=== PATIENT | female | born 1955 | race Caucasian/White ===

== ENCOUNTER 2018-06-20 14:15 | Emergency (ER) | payer OTHER ==
[~2018-06-20] VITALS: Ht 157.5 cm; Wt 52.2 kg
[2018-06-20] MEDS ORDERED: HYDROcodone/APAP 5 MG/325 MG (LORTAB) TAB PO ONE (14:45)
--- NOTE | 2018-06-20 14:47 | ED Upper Extremity ---
General Chief Complaint: Upper Extremity Stated Complaint: HAND INJ;SWELLING/BRUISING Nursing Triage Note: PT PRESENTS TO ER WITH COMPLAINT OF RIGHT HAND PAIN AND SWELLING. PT STATES SHE FELL WEDNESDAY AND LANDED ON HER RIGHT HAND. STATES THE SWELLING AND BRUISING HAS WORSENED. Nursing Sepsis Screen: No Definite Risk Source: patient Exam Limitations: no limitations History of Present Illness Date Seen by Provider: Jun 20, 2018 Time Seen by Provider: 14:45 Initial Comments To ER per EMS with reports of right hand pain. She also has some significant swelling to the dorsum of the hand. She fell while getting out of the couch about 2 days ago. She's had significant swelling as well. Onset: just prior to arrival Severity: moderate Pain/Injury Location: right hand Method of Injury: fell Modifying Factors: Worse With Movement Allergies and Home Medications Allergies Coded Allergies: Sulfa (Sulfonamide Antibiotics) (Verified Allergy, Unknown, 06/20/18) Home Medications Hydrocodone/Acetaminophen 1 Each Tablet, 1 EACH PO Q4H PRN for PAIN-MODERATE Prescribed by: GONSALO RODRIGUEZ on 06/20/18 1511 Patient Home Medication List Home Medication List Reviewed: Yes Review of Systems Constitutional: see HPI EENTM: see HPI Respiratory: no symptoms reported Cardiovascular: no symptoms reported Genitourinary: no symptoms reported Musculoskeletal: see HPI Skin: no symptoms reported Psychiatric/Neurological: No Symptoms Reported Past Qxqlnws-Lhwtvc-Kkbxcv Hx Patient Social History Alcohol Use: Occasionally Uses Alcohol Beverage of Choice: Wine Recreational Drug Use: No Smoking Status: Current Everyday Smoker Type Used: Cigarettes Recent Foreign Travel: No Contact w/Someone Who Travel: No Recent Infectious Disease Expo: No Recent Hopitalizations: No Immunizations Up To Date PED Vaccines UTD: Yes Seasonal Allergies Seasonal Allergies: No Past Medical History Surgeries: Yes Orthopedic Respiratory: No Cardiac: Yes High Cholesterol, Hypertension Neurological: No Genitourinary: No Gastrointestinal: No Musculoskeletal: No Endocrine: No HEENT: No Cancer: No Psychosocial: No Integumentary: No Blood Disorders: No Physical Exam Vital Signs Vital Signs - First Documented 06/20/18 14:29 Pulse 92 Resp 20 B/P (MAP) 119/79 (92) Pulse Ox 97 O2 Delivery Room Air Capillary Refill : Less Than 3 Seconds Height, Weight, BMI Height: 5'2.00" Weight: 115lbs. oz. 52.065347ey; BMI Method:Stated General Appearance: WD/WN, no apparent distress HEENT: PERRL/EOMI, normal ENT inspection Respiratory: no respiratory distress, no accessory muscle use Shoulder: normal inspection, non-tender Elbow/Forearm: normal inspection, non-tender Wrist: Yes normal inspection, Yes non-tender Hand: Right, ecchymosis, soft tissue tenderness (I am able to passively flex and extend each of the fingers without increased pain in the hand so I'm not concerned of compartment syndrome at this time. Fingertips retain brisk capillary refill and sensation.), swelling Neurologic/Psychiatric: alert, normal mood/affect, oriented x 3 Skin: normal color, warm/dry Progress/Results/Core Measures Results/Orders My Orders Orders - GONSALO RODRIGUEZ APRN Hand, Right, 3 Views (06/20/18 14:34) Hydrocodone/Apap 5/325 Tablet (Lortab 5 (06/20/18 14:45) Medications Given in ED Current Medications Medications Dose Ordered Sig/Barbara Route Start Time Stop Time Status Last Admin Dose Admin Acetaminophen/ Hydrocodone Bitart 1 tab ONCE ONCE PO 06/20/18 14:45 06/20/18 14:46 DC 06/20/18 14:47 1 TAB Vital Signs/I&O 06/20/18 14:29 Pulse 92 Resp 20 B/P (MAP) 119/79 (92) Pulse Ox 97 O2 Delivery Room Air Blood Pressure Mean: 92 Departure Communication (Admissions) Placed her in a thumb spica splint using 5 inch Ortho-Glass that I was able to wrap around her hand ulnarly to the third metacarpal. Due to the large size of this 5 inch Ortho-Glass I was able to mobilize the first second and third metacarpals. Impression Primary Impression: Thumb fracture Qualified Codes: S62.511A - Displaced fracture of proximal phalanx of right thumb, initial encounter for closed fracture Disposition: 01 HOME, SELF-CARE Condition: Stable Departure-Patient Inst. Decision time for Depature: 15:10 Patient Instructions: Hand Fracture (DC) Add. Discharge Instructions: 1. Wear the splint at all times until you follow up with orthopedics. Pain medication as directed. Return to ER for concerns. Elevate the hand as much as possible to help reduce the swelling. All discharge instructions reviewed with patient and/or family. Voiced understanding. Scripts Hydrocodone/Acetaminophen (Rock 5-325 Tablet) 1 Each Tablet 1 EACH PO Q4H PRN for PAIN-MODERATE MDD 10, #30 TAB Prov: GONSALO RODRIGUEZ APRN 06/20/18 GONSALO RODRIGUEZ APRN Jun 20, 2018 14:47
[2018-06-20] MEDS ORDERED: HYDR-4226 PO (15:11)
--- NOTE | 2018-06-20 15:32 | Diagnostic Imaging Report ---
INDICATION: Right hand pain and swelling. FINDINGS: Three views of the right hand show a comminuted fracture of the base of the first metacarpal. This is nondisplaced. There is a nondisplaced fracture of the head of the second metacarpal with slight impaction. There are postop changes from prior repair with internal fixation of a distal radius fracture. IMPRESSION: Comminuted fracture of the base of the first metacarpal that extends to the articular surface. There is an impacted fracture of the head of the second metacarpal. Dictated by: Dictated on workstation # [id number]
[2018-06-20 15:46] VITALS: BP 118/79
== END 2018-06-20 15:46 | disposition home or self-care (01) ==
LOC: ER 14:17
DX: S62.231A Other displaced fracture of base of first metacarpal bone, right hand, initial encounter for closed fracture (principal); E78.00 Pure hypercholesterolemia, unspecified; I10 Essential (primary) hypertension; F17.210 Nicotine dependence, cigarettes, uncomplicated; Z88.2 Allergy status to sulfonamides; W08.XXXA Fall from other furniture, initial encounter
CPT/HCPCS: 73130

== ENCOUNTER 2018-11-26 21:37 | Emergency (ER) | payer OTHER ==
[~2018-11-26] VITALS: Ht 157.5 cm; Wt 47.6 kg
[~2018-11-26 21:37] MED LIST: HYDR-4226 PO
[2018-11-26] MEDS ORDERED: AMLO5TAB9 (22:11)
[2018-11-26] MEDS ORDERED: LISI-552 (22:11)
[2018-11-26] MEDS ORDERED: PRAV20TA3 (22:11)
--- NOTE | 2018-11-26 22:11 | ED Lower Extremity ---
General Stated Complaint: RT HIP PAIN Source: patient Exam Limitations: no limitations History of Present Illness Date Seen by Provider: November 26, 2018 Time Seen by Provider: 22:09 Initial Comments To ER by private vehicle accompanied by mother with reports of right hip pain. Was trying to help move a mattress when she fell landing on her buttock, had immediate pain in the posterior right hip, now has pain in the anterior right hip as well. Unable to bear weight. Onset: just prior to arrival Severity: moderate Pain/Injury Location: right hip Method of Injury: fell Modifying Factors: Worse With Movement Allergies and Home Medications Allergies Coded Allergies: Sulfa (Sulfonamide Antibiotics) (Verified Allergy, Unknown, 06/20/18) Home Medications Hydrocodone/Acetaminophen 1 Each Tablet, 1 EACH PO Q4H PRN for PAIN-MODERATE Prescribed by: GONSALO RODRIGUEZ on 06/20/18 1511 Patient Home Medication List Home Medication List Reviewed: Yes Review of Systems Constitutional: see HPI EENTM: see HPI Respiratory: no symptoms reported Musculoskeletal: see HPI Skin: no symptoms reported Psychiatric/Neurological: No Symptoms Reported Past Fqpbfwh-Muyzdw-Bexmye Hx Patient Social History Alcohol Beverage of Choice: Wine Type Used: Cigarettes Recent Foreign Travel: No Contact w/Someone Who Travel: No Recent Hopitalizations: No Immunizations Up To Date PED Vaccines UTD: Yes Seasonal Allergies Seasonal Allergies: No Past Medical History Surgeries: Yes Orthopedic Respiratory: No Cardiac: Yes High Cholesterol, Hypertension Neurological: No Genitourinary: No Gastrointestinal: No Musculoskeletal: No Endocrine: No HEENT: No Cancer: No Psychosocial: No Integumentary: No Blood Disorders: No Physical Exam Vital Signs Vital Signs - First Documented 11/26/18 21:59 Temp 97.8 Pulse 72 Resp 18 B/P (MAP) 141/74 (96) Pulse Ox 100 O2 Delivery Room Air Capillary Refill : Height, Weight, BMI Height: 5'2.00" Weight: 115lbs. oz. 52.196732na; BMI Method:Stated General Appearance: WD/WN, no apparent distress HEENT: PERRL/EOMI Respiratory: no respiratory distress, no accessory muscle use Hips: bilateral hip normal inspection, bilateral hip normal range of motion; right hip pain, right hip other (she does have pain to the right hip. However when I lay her supine in bed and pick her leg up and abduct the leg at the hip, adduct, flex at the hip this does not increase her pain and she states in fact that it makes the hip feel better. However when she actively tries to perform range of motion exercises she has a increase in pain. I suspect a muscular injury but we will obtain plain films.) Legs: bilateral leg non-tender, bilateral leg normal inspection, bilateral leg normal range of motion Knees: bilateral knee non-tender, bilateral knee normal inspection, bilateral knee normal range of motion Ankles: bilateral ankle non-tender, bilateral ankle normal inspection, bilateral ankle normal range of motion Feet: bilateral foot non-tender, bilateral foot normal inspection, bilateral foot normal range of motion Neurologic/Psychiatric: alert, normal mood/affect, oriented x 3 Skin: normal color, warm/dry Progress/Results/Core Measures Results/Orders My Orders Orders - GONSALO RODRIGUEZ APRN Hydrocodone/Apap 5/325 Tablet (Lortab 5 (11/26/18 22:15) Pelvis (11/26/18 22:08) Hip, Right, 2 Views (11/26/18 22:08) Chest 1 View, Ap/Pa Only (11/26/18 22:56) Rx-Hydrocodone/Apap 5-325 Mg (Rx-Vicodin (11/26/18 23:00) Medications Given in ED Current Medications Medications Dose Ordered Sig/Barbara Route Start Time Stop Time Status Last Admin Dose Admin Acetaminophen/ Hydrocodone Bitart 1 tab ONCE ONCE PO 11/26/18 22:15 11/26/18 22:16 DC 11/26/18 22:18 1 TAB Vital Signs/I&O 11/26/18 11/26/18 21:59 22:18 Temp 97.8 97.8 Pulse 72 Resp 18 B/P (MAP) 141/74 (96) Pulse Ox 100 O2 Delivery Room Air Departure Impression Primary Impression: Fracture of pubic ramus Qualified Codes: S32.591A - Other specified fracture of right pubis, initial encounter for closed fracture Disposition: 01 HOME, SELF-CARE Condition: Stable Departure-Patient Inst. Decision time for Depature: 22:58 Referrals: HERRERA TREJO BRIAN J MD NO,LOCAL PHYSICIAN (PCP) Primary Care Physician JUANITA MIJARES MD, ROBERT F DO ZAFUTA, MICHAEL P MD Patient Instructions: Pelvic Fracture (DC) Add. Discharge Instructions: 1. Weightbearing as tolerated. Use the walker when walking. Pain medication as directed. Return to ER for any concerns. Follow-up with orthopedic surgeon of your choosing within 1 week. Call on Wednesday to make an appointment. Scripts Hydrocodone Bit/Acetaminophen (Hydrocodone/Acetaminophen 5/325mg Tablet) 1 Tab Tab 1 EACH PO Q4-6HR PRN for PAIN-MODERATE MDD 10 for 3 Days, #30 TAB Prov: GONSALO RODRIGUEZ APRN 11/26/18 GONSALO RODRIGUEZ APRN November 26, 2018 22:11
[2018-11-26] MEDS ORDERED: HYDROcodone/APAP 5 MG/325 MG (LORTAB) TAB PO ONE (22:15)
--- NOTE | 2018-11-26 22:18 | NUR ---
pt assissted out of pants, warm blanket provided. pt informed other patient in radiology at this time. no other needs at this time.
[2018-11-26] MEDS ORDERED: ACHD5005 PO (23:00)
[2018-11-26] MEDS ORDERED: RX-HYDROCODONE/APAP 5/325 MG #4 TAB PK PO PRN (23:00)
[2018-11-26 23:08] VITALS: BP 137/76
--- NOTE | 2018-11-27 07:37 | Diagnostic Imaging Report ---
PATIENT HISTORY: Right pelvic pain from fall. TECHNIQUE: Single frontal view of the pelvis COMPARISON: None FINDINGS: The pelvis is partially obscured by overlying bowel gas. There is osteopenia. There are mild degenerative changes in the bilateral hip joints. There is calcific atherosclerosis. There is a mildly displaced fracture through the right superior and inferior pubic rami. The right sacrum is suboptimally evaluated due to bowel gas and osteopenia. There are iliac stents bilaterally. IMPRESSION: 1. Mildly displaced fractures of the right superior and inferior pubic rami. The right sacrum is suboptimally evaluated. Dictated by: Dictated on workstation # [id number]
--- NOTE | 2018-11-27 07:39 | Diagnostic Imaging Report ---
PATIENT HISTORY: Fall. TECHNIQUE: Frontal view of the chest COMPARISON: None FINDINGS: Lung volumes are normal. No focal consolidation is seen. There is no pleural effusion or pneumothorax. The cardiomediastinal silhouette is normal in size and contour. There is diffuse osteopenia. There is internal fixation of the proximal left humerus. IMPRESSION: No acute pulmonary abnormality seen. Dictated by: Dictated on workstation # [id number]
--- NOTE | 2018-11-27 07:44 | Diagnostic Imaging Report ---
INDICATION: Right pelvic pain after fall. TECHNIQUE: 2 views of the right hip. COMPARISON: None. FINDINGS: There is a mildly displaced fracture of the right superior and inferior pubic rami. No definite fracture is seen in the right sacrum, although partially obscured by bowel gas and osteopenia. There are mild degenerative changes in the right hip joint. There is calcific atherosclerosis. No acute fracture of the proximal right femur is seen. IMPRESSION: 1. Mildly displaced fractures of the right superior and inferior pubic rami. The right sacrum is not well evaluated. 2. Mild degenerative changes in the right hip joint. Called to ER at 7:41 a.m. by cvb. Dictated by: Dictated on workstation # [id number]
== END 2018-11-26 23:08 | disposition home or self-care (01) ==
LOC: EDUNIT# 21:37 → ER 21:38
DX: S32.591A Other specified fracture of right pubis, initial encounter for closed fracture (principal); E78.00 Pure hypercholesterolemia, unspecified; I10 Essential (primary) hypertension; Z88.2 Allergy status to sulfonamides; W18.30XA Fall on same level, unspecified, initial encounter
CPT/HCPCS: 71045; 72170; 73502

== ENCOUNTER 2021-01-17 21:26 | Emergency (ER) | payer MEDICARE, OTHER ==
[~2021-01-17] VITALS: Ht 157.5 cm; Wt 45.3 kg
[~2021-01-17 21:26] MED LIST changes: +ACHD5005 PO; +AMLO-250; +LISI20TA26; +PRAV20TA3
--- NOTE | 2021-01-17 21:42 | ED Fall/Injury ---
General Stated Complaint: FALL Source: patient, EMS Exam Limitations: no limitations History of Present Illness Date Seen by Provider: Jan 17, 2021 Time Seen by Provider: 21:29 Initial Comments Patient to the ER by EMS from home with chief complaint that she was in her home had just gone to the bathroom and was walking through her house and tripped over a box. She immediately had pain in her right hip and was unable to stand. She tried herself over to her coffee table where her phone was called her mother and EMS. She did not strike her head nor did she lose consciousness. She says she had 2 glasses of wine tonight. She typically drinks 4 glasses of wine a day. She smokes about a pack a day but only takes medications for high blood pressure. She is known to Karlo Segura at [facility]. She recently moved here from [place] and has been unpacking. She is not on blood thinners. She rates her pain as an 8 out of 10. She has not received anything for pain yet. A liter of IV fluids was initiated on route because her blood pressure was in the 90s. Allergies and Home Medications Allergies Coded Allergies: Sulfa (Sulfonamide Antibiotics) (Verified Allergy, Unknown, 06/20/18) Home Medications Hydrocodone Bit/Acetaminophen 1 Tab Tab, 1 EACH PO Q4-6HR PRN for PAIN-MODERATE Prescribed by: GONSALO RODRIGUEZ on 11/26/18 2300 Hydrocodone/Acetaminophen 1 Each Tablet, 1 EACH PO Q4H PRN for PAIN-MODERATE Prescribed by: GONSALO RODRIGUEZ on 06/20/18 1511 Patient Home Medication List Home Medication List Reviewed: Yes Review of Systems Review of Systems Constitutional: No chills, No diaphoresis, No dizziness, No fever, No malaise, No weakness Eyes: Denies Blindness, Denies Blurred Vision Ears, Nose, Mouth, Throat: denies ear pain, denies ear discharge Respiratory: No cough, No dyspnea on exertion Cardiovascular: No chest pain, No edema, No Hx of Intervention Gastrointestinal: No abdominal pain, No nausea, No vomiting Genitourinary: No discharge, No dysuria Musculoskeletal: see HPI; No back pain; joint pain All Other Systems Reviewed Negative Unless Noted: Yes Past Gwzdqvj-Vfjisu-Upiexe Hx Patient Social History Alcohol Use: Regular Use Number of Drinks Today: 2 Alcohol Beverage of Choice: Wine Drug of Choice: Denies Smoking Status: Current Everyday Smoker Type Used: Cigarettes (Pack per day) Recent Hopitalizations: No Immunizations Up To Date Tetanus Booster (TDap): Unknown PED Vaccines UTD: Yes Seasonal Allergies Seasonal Allergies: No Past Medical History Surgeries: Yes Orthopedic Respiratory: No Cardiac: Yes High Cholesterol, Hypertension 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 oz. 47.403152lm; BMI Method:Stated General Appearance: WD/WN, mild distress HEENT: PERRL/EOMI (3 mm reactive), normal ENT inspection (Negative for raccoon eyes), TMs normal (Negative for d[place] sign or hemotympanum), pharynx normal Neck: non-tender, full range of motion, normal inspection Cardiovascular: normal peripheral pulses, regular rate, rhythm Respiratory: lungs clear, normal breath sounds, no respiratory distress, no accessory muscle use Peripheral Pulses: 1+ Dorsalis Pedis (R), 1+ Left Dors-Pedis (L) Gastrointestinal: normal bowel sounds, non tender, soft Extremities: normal capillary refill, other (Tenderness over the greater trochanter of the right femur) Neurologic/Psychiatric: no motor/sensory deficits, alert, normal mood/affect, oriented x 3 Skin: normal color, warm/dry Bro Coma Score Best Eye Response: (4) Open Spontaneously Best Verbal Response: (5) Oriented Best Motor Response: (6) Obeys Commands [place] Total: 15 Progress/Results/Core Measures Results/Orders Lab Results Laboratory Tests Test 01/17/21 21:35 01/18/21 00:05 Range/Units White Blood Count 5.3 4.3-11.0 10^3/uL Red Blood Count 3.06 L 3.80-5.11 10^6/uL Hemoglobin 10.3 L 11.5-16.0 g/dL Hematocrit 31 L 35-52 % Mean Corpuscular Volume 101 H 80-99 fL Mean Corpuscular Hemoglobin 34 25-34 pg Mean Corpuscular Hemoglobin Concent 33 32-36 g/dL Red Cell Distribution Width 13.2 10.0-14.5 % Platelet Count 339 130-400 10^3/uL Mean Platelet Volume 9.4 9.0-12.2 fL Immature Granulocyte % (Auto) 1 % Neutrophils (%) (Auto) 55 42-75 % Lymphocytes (%) (Auto) 31 12-44 % Monocytes (%) (Auto) 11 0-12 % Eosinophils (%) (Auto) 1 0-10 % Basophils (%) (Auto) 1 0-10 % Neutrophils # (Auto) 2.9 1.8-7.8 10^3/uL Lymphocytes # (Auto) 1.7 1.0-4.0 10^3/uL Monocytes # (Auto) 0.6 0.0-1.0 10^3/uL Eosinophils # (Auto) 0.1 0.0-0.3 10^3/uL Basophils # (Auto) 0.1 0.0-0.1 10^3/uL Immature Granulocyte # (Auto) 0.0 0.0-0.1 10^3/uL Sodium Level 133 L 135-145 MMOL/L Potassium Level 3.5 L 3.6-5.0 MMOL/L Chloride Level 100 98-107 MMOL/L Carbon Dioxide Level 17 L 21-32 MMOL/L Anion Gap 16 H 5-14 MMOL/L Blood Urea Nitrogen 5 L 7-18 MG/DL Creatinine 0.62 0.60-1.30 MG/DL Estimat Glomerular Filtration Rate > 60 BUN/Creatinine Ratio 8 Glucose Level 51 *L 70-105 MG/DL Calcium Level 8.3 L 8.5-10.1 MG/DL Corrected Calcium 8.9 8.5-10.1 MG/DL Total Bilirubin 0.3 0.1-1.0 MG/DL Aspartate Amino Transf (AST/SGOT) 43 H 5-34 U/L Alanine Aminotransferase (ALT/SGPT) 21 0-55 U/L Alkaline Phosphatase 76 40-136 U/L Total Protein 6.7 6.4-8.2 GM/DL Albumin 3.3 3.2-4.5 GM/DL Serum Alcohol 170 H <10 MG/DL My Orders Orders - AINSLEY MORRIS Chest 1 View, Ap/Pa Only (01/17/21 21:36) Hip, Right, 2 Views (01/17/21 21:36) Ed Iv/Invasive Line Start (01/17/21 21:36) Fentanyl Inj (Sublimaze Injection) (01/17/21 21:45) Cbc With Automated Diff (01/17/21 21:36) Comprehensive Metabolic Panel (01/17/21 21:36) Alcohol (01/17/21 21:36) Ekg Tracing (01/17/21 21:36) D5 Ns 1000 Ml Iv Solution (Dextrose 5%/0 (01/17/21 22:15) Fentanyl Inj (Sublimaze Injection) (01/17/21 23:30) Medications Given in ED Current Medications Medications Dose Ordered Sig/Barbara Route Start Time Stop Time Status Last Admin Dose Admin Fentanyl Citrate 50 mcg ONCE ONCE IVP 01/17/21 21:45 01/17/21 21:46 DC 01/17/21 21:46 50 MCG Fentanyl Citrate 100 mcg ONCE ONCE IVP 01/17/21 23:30 01/17/21 23:31 DC 01/17/21 23:48 100 MCG Vital Signs/I&O 01/17/21 21:26 Temp 36.6 Pulse 84 Resp 17 B/P (MAP) 102/71 (81) Pulse Ox 100 O2 Delivery Room Air 01/18/21 00:00 Intake Total 300 ml Balance 300 ml Progress Progress Note #1: Time: 21:41 Progress Note Plain films of the hip. Suspect it is fractured she will get a plain film of the chest as well as EKG and some labs to establish background prior to surgery. 50 mcg of fentanyl. Will allow her to continue to infuse the IV fluids. Progress Note #2: Time: 00:47 Progress Note Patient presented with an Accu-Chek of 58 per EMS and 51 in the ER so we started her on D5 normal saline at 100 mL an hour. Her repeat blood sugar was 70. We will just keep that going until she reaches her destination at [place]. Initial ECG Impression Date: Jan 17, 2021 Initial ECG Impression Time: 21:48 Initial ECG Rate: 86 Initial ECG Rhythm: Normal Sinus Initial ECG Intervals: QT (587) Initial ECG Impression: Normal, Nonspecific Changes Comment Prolonged QT interval. Normal sinus rhythm without clinically relevant ST changes. Diagnostic Imaging Diagonstic Imaging: Xray Plain Films/CT/US/NM/MRI: chest Reviewed: Reviewed by Me Diagonstic Imaging: Xray Plain Films/CT/US/NM/MRI: hip (Right) Reviewed: Reviewed by Me Departure Impression Primary Impression: Fall Qualified Codes: W19.XXXA - Unspecified fall, initial encounter Additional Impressions: Closed right hip fracture Qualified Codes: S72.001A - Fracture of unspecified part of neck of right femur, initial encounter for closed fracture Hypoglycemia Disposition: XFER SHT-TRM HOSP Condition: Stable Transfer Transfer Reason: Exceeds level of care (No orthopedic surgery coverage.) Time Spoke to Accepting Phy: 23:45 Transfer Progress Notes [place] ED: Dr Alfonso Accepting Transfer Time: 01:00 Transfer Facility: [facility] Method of Transfer: EMS ([facility]) Departure-Patient Inst. Referrals: NO,LOCAL PHYSICIAN (PCP/Family) Primary Care Physician AINSLEY MORRIS Jan 17, 2021 21:42
[2021-01-17] MEDS ORDERED: fentaNYL INJ 100 MCG/2 ML AMP IVP ONE ×2 (21:45→23:30)
[2021-01-17 21:49] LABS: BASOPHILS # (AUTO) 0.1 10^3/uL (0.0-0.1); BASOPHILS % (AUTO) 1 % (0-10); EOSINOPHILS # (AUTO) 0.1 10^3/uL (0.0-0.3); EOSINOPHILS % (AUTO) 1 % (0-10); HEMATOCRIT 31 % (35-52); HEMOGLOBIN 10.3 g/dL (11.5-16.0); LYMPHOCYTES # (AUTO) 1.7 10^3/uL (1.0-4.0); LYMPHOCYTES % (AUTO) 31 % (12-44); MEAN CORPUSCULAR HEMOGLOBIN 34 pg (25-34); MEAN CORPUSCULAR HGB CONC 33 g/dL (32-36); MEAN CORPUSCULAR VOLUME 101 fL (80-99); MEAN PLATELET VOLUME 9.4 fL (9.0-12.2); MONOCYTES # (AUTO) 0.6 10^3/uL (0.0-1.0); MONOCYTES % (AUTO) 11 % (0-12); NEUTROPHILS # (AUTO) 2.9 10^3/uL (1.8-7.8); NEUTROPHILS % (AUTO) 55 % (42-75); PLATELET COUNT 339 10^3/uL (130-400); WHITE BLOOD COUNT 5.3 10^3/uL (4.3-11.0)
[2021-01-17 21:53] LABS: ALBUMIN 3.3 GM/DL (3.2-4.5)
[2021-01-17 21:54] LABS: CHLORIDE 100 MMOL/L (98-107); POTASSIUM 3.5 MMOL/L (3.6-5.0); SODIUM 133 MMOL/L (135-145)
[2021-01-17 21:55] LABS: CALCIUM 8.3 MG/DL (8.5-10.1)
[2021-01-17 21:56] LABS: TOTAL PROTEIN 6.7 GM/DL (6.4-8.2)
[2021-01-17 21:57] LABS: CARBON DIOXIDE 17 MMOL/L (21-32)
[2021-01-17 21:58] LABS: BILIRUBIN,TOTAL 0.3 MG/DL (0.1-1.0)
[2021-01-17 21:59] LABS: ALKALINE PHOSPHATASE 76 U/L (40-136)
[2021-01-17 22:00] LABS: CREATININE SERUM 0.62 MG/DL (0.60-1.30); GFR ESTIMATED > 60
[2021-01-17 22:01] LABS: BUN/CREATININE RATIO 8
[2021-01-17 22:03] LABS: ALANINE AMINOTRANSFERASE 21 U/L (0-55)
[2021-01-17 22:08] LABS: GLUCOSE 51 MG/DL (70-105)
[2021-01-17] MEDS ORDERED: D5 NS 1000 ML IV SOLUTION 1,000 ML IV SCH (22:15)
[2021-01-18 00:50] VITALS: BP 118/68
--- NOTE | 2021-01-18 07:24 | Diagnostic Imaging Report ---
INDICATION: Fall, pain FINDINGS: There is mild varus angulation associated with an intertrochanteric right hip fracture. Femoral head is intact. The acetabulum nonacute. There is bilateral hip osteoarthritis. There appears to be bony demineralization and atherosclerotic vascular calcifications. IMPRESSION: Mild varus angulation associated with intertrochanteric right hip fracture with underlying bony demineralization Dictated by: Dictated on workstation # [id number]
== END 2021-01-18 00:50 | disposition short-term general hospital (02) ==
LOC: EDUNIT# 21:26 → ER 21:27
DX: S72.141A Displaced intertrochanteric fracture of right femur, initial encounter for closed fracture (principal); E16.2 Hypoglycemia, unspecified; I10 Essential (primary) hypertension; F17.210 Nicotine dependence, cigarettes, uncomplicated; W01.0XXA Fall on same level from slipping, tripping and stumbling without subsequent striking against object, initial encounter; Y92.009 Unspecified place in unspecified non-institutional (private) residence as the place of occurrence of the external cause
CPT/HCPCS: 71045; 73502; 80053; 85025; 93005; 99285; G0480; 36415; 80320; 82947

== ENCOUNTER → 2021-03-14 | Outpatient (CLI) | payer MEDICARE | LOC: LAB 13:38 | PROVIDERS: ATTEND Surgery | DX: E43 Unspecified severe protein-calorie malnutrition (principal) | CPT/HCPCS: 36415; 84134 ==

== ENCOUNTER → 2021-03-14 | Outpatient (CLI) | payer MEDICARE | LOC: WOUNDCARE 12:10 | PROVIDERS: ATTEND Surgery | DX: L89.610 Pressure ulcer of right heel, unstageable (principal); L89.620 Pressure ulcer of left heel, unstageable; L89.890 Pressure ulcer of other site, unstageable; I70.234 Atherosclerosis of native arteries of right leg with ulceration of heel and midfoot; E43 Unspecified severe protein-calorie malnutrition; T65.222A Toxic effect of tobacco cigarettes, intentional self-harm, initial encounter; F17.218 Nicotine dependence, cigarettes, with other nicotine-induced disorders | CPT/HCPCS: A6260; G0463; 99214 ==

== ENCOUNTER → 2021-03-20 | Outpatient (CLI) | payer MEDICARE | LOC: WOUNDCARE 15:00 | PROVIDERS: ATTEND Surgery | DX: L89.610 Pressure ulcer of right heel, unstageable (principal); L89.620 Pressure ulcer of left heel, unstageable; L89.890 Pressure ulcer of other site, unstageable; I70.234 Atherosclerosis of native arteries of right leg with ulceration of heel and midfoot; E43 Unspecified severe protein-calorie malnutrition; T65.222A Toxic effect of tobacco cigarettes, intentional self-harm, initial encounter; I96 Gangrene, not elsewhere classified; F17.218 Nicotine dependence, cigarettes, with other nicotine-induced disorders | CPT/HCPCS: 99214 ==

== ENCOUNTER → 2021-03-26 | Outpatient (CLI) | payer MEDICARE | LOC: CARD 13:39 | PROVIDERS: ATTEND Internal Medicine Cardiovascular Disease | DX: I08.1 Rheumatic disorders of both mitral and tricuspid valves (principal); I73.9 Peripheral vascular disease, unspecified | CPT/HCPCS: 93306 ==

== ENCOUNTER 2021-04-02 09:00 | Day surgery (SDC) | payer MEDICARE ==
[~2021-04-02] VITALS: Ht 157.5 cm; Wt 36.7 kg
[2021-04-02] VITALS (10 sets, daily range): BP systolic 80–120; BP diastolic 50–74
[2021-04-02 07:33] LABS: HEMATOCRIT 30 % (35-52); HEMOGLOBIN 9.6 g/dL (11.5-16.0); MEAN CORPUSCULAR HEMOGLOBIN 32 pg (25-34); MEAN CORPUSCULAR HGB CONC 33 g/dL (32-36); MEAN CORPUSCULAR VOLUME 97 fL (80-99); MEAN PLATELET VOLUME 9.6 fL (9.0-12.2); PLATELET COUNT 467 10^3/uL (130-400); WHITE BLOOD COUNT 7.3 10^3/uL (4.3-11.0)
[2021-04-02 07:40] LABS: POTASSIUM 3.9 MMOL/L (3.6-5.0)
[2021-04-02 07:41] LABS: ALBUMIN 3.7 GM/DL (3.2-4.5)
[2021-04-02 07:42] LABS: CALCIUM 9.6 MG/DL (8.5-10.1)
[2021-04-02 07:43] LABS: TOTAL PROTEIN 7.6 GM/DL (6.4-8.2)
[2021-04-02 07:45] LABS: BILIRUBIN,TOTAL 0.3 MG/DL (0.1-1.0)
[2021-04-02 07:47] LABS: CREATININE SERUM 0.62 MG/DL (0.60-1.30)
[2021-04-02 07:50] LABS: INR 0.9 (0.8-1.4); PROTHROMBIN TIME PATIENT 12.2 SEC (12.2-14.7)
[~2021-04-02 09:00] MED LIST changes: -AMLO-250; +AMLO-250 PO; +ASPI-808 PO; +HEParin (CATH LAB) 2,000 ML IV ONE; +LIDOCAINE 1% INJ 20 ML 20 ML VIAL ONE; -LISI20TA26; +LISI20TA26 PO; +NS IV 1000 ML 1,000 ML IV SCH; +NS IV 1000 ML 1,000 ML ONE; +PEG15DRO9 OU
--- NOTE | 2021-04-02 09:00 | Conscious Sedation/ASA ---
Conscious Sedation Pre-Proced Time 08:59 ASA Score 3 For ASA 3 and 4: Consider anesthesia and medical clearance. Also, for patients with a history of failed moderate sedation consider anesthesia. Airway Lungs Heart ASA score ASA 1: a normal healthy patient ASA 2: a patient with a mild systemic disease (mid diabetes, controlled hypertension, obesity x ASA 3: a patient with a severe systemic disease that limits activity (angina, COPD, prior Myocardial infarction) ASA 4: a patient with an incapacitating disease that is a constant threat to life (CHF, renal failure) ASA 5: a moribund patient not expected to survive 24 hrs. (ruptured aneurysm) ASA 6: a declared brain- patient whose organs are being harvested. For emergent operations, add the letter E after the classification Mallampati Classification Grade 3 Sedation Plan Analgesia, Amnesia, Plan communicated to team members, Discussed options with patient/fam, Discussed risks with patient/fam The patient is an appropriate candidate to undergo the planned procedure, sedation, and anesthesia. The patient immediately re-assessed prior to indication. LALITA MAURO MD Apr 02, 2021 09:00
--- NOTE | 2021-04-02 09:20 | Diagnostic Imaging Report ---
INDICATION: Hypertension and peripheral vascular disease. Frontal chest obtained at 746 a.m. and compared to 01/17/2021 Heart and mediastinal silhouette are normal in appearance. There is hyperinflation compatible with COPD. There is no focal infiltrate or pneumothorax or pleural fluid. IMPRESSION: Hyperinflation compatible with COPD. No acute process in the chest. Dictated by: Dictated on workstation # [id number]
[2021-04-02] MEDS ORDERED: FISH1CAP15 PO (09:27)
[2021-04-02] MEDS ORDERED: ATOR40TA PO (09:27)
--- NOTE | 2021-04-02 09:28 | Discharge Inst-Post CATH ---
Discharge Inst-CATH/EP Problems Reviewed?: Yes Post Cardiac Cath/EP D/C Inst Follow Up/Plan Appointment with Dr. Wagoner's office next week <b>CARDIAC CATH/EP PROCEDURE DISCHARGE INSTRUCTIONS</b> ACTIVITY * Go Home directly and rest. * Limit activity of the leg (or wrist if it was used) for 7 days including aerobics, swimming, jogging, bicycling, etc. * Restrict stair-climbing for 7 days if possible, if not, climb up with your non-cath leg, then bring together on the same step. * Avoid lifting, pushing, pulling or excessive movement of the affected extremity for 7 days. * Customary sexual activity may be resumed after 2 days-use caution not to use a position that strains or causes pain to the affected extremity. * No driving for 24 hours. * NO SMOKING. * Avoid straining for bowel movements for 7 days. * Gentle walking on level ground is allowed. * Returning to work will depend on the type of procedure and the results. Your doctor will discuss this with you. CALL YOUR DOCTOR FOR ANY OF THE FOLLOWING: *If bleeding from the puncture site occurs- Apply gentle pressure to site with clean cloth and call your doctor or EMS. * If a knot or lump forms under the skin, increases in size, or causes pain. * If bruising appears to be worsening or moving further down your leg instead of disappearing. * Temperature above 101 F. CARE OF YOUR GROIN INCISION; * Bruising or purple discoloration of the skin near the puncture site is common. * You may shower only, no bathtub bathing for 5 days. Be careful to avoid slipping as your leg may feel stiff. * If a closure device was used on your femoral artery, please see the attached guide regarding care of the device and your leg. * Leave dressing on FOR 24 hours. CARE OF YOUR WRIST INCISION; * Bruising or purple discoloration of the skin near the puncture site is common. * You may shower. * DO NOT submerge wrist. * Leave dressing on FOR 24 hours. LALITA WAGONER MD Apr 02, 2021 09:28
[2021-04-02] MEDS ORDERED: NS IV 1000 ML 1,000 ML IV SCH (09:30)
[2021-04-02] MEDS ORDERED: PATIENT MAY USE OWN MEDS, ALL PO SCH (09:30)
--- NOTE | 2021-04-02 09:39 | Peripheral Report ---
Peripheral Report Physician (s)/Director Of Conservation (s) Physician LALITA MAURO MD Pre-Procedure Diagnosis Pre-Procedure Diagnosis: Nonhealing foot ulcer bilaterally, abnormal ONEAL Post-Procedure Note Procedure Start Date: Apr 02, 2021 Name of Procedure: Abdominal aortogram with bilateral lower extremity runoff First order Additional imaging Findings/Procedure Note PROCEDURE NOTE: 65-year-old lady with history of peripheral arterial disease had history of stenting in the past done at an outside institution, does not have record of her interventions. Has bilateral heel ulcers, had abnormal ONEAL bilaterally was abnormal waveforms and TBI. Scheduled for peripheral angiogram possible intervention After explaining the procedure to the patient, all pros and cons were explained, all questions were answered. The patient signed the consent and then she was placed on the cardiac catheterization laboratory. The patient was placed on the cardiac catheterization laboratory. Groin was prepped SL fashion local anesthesia was used. I had difficulty advancing the wire through the right common femoral artery, I placed 5 Palestinian sheath and advanced a Storq wire then did angiogram to evaluate she is position then through the sheath I did runoff to the right leg, appears to have occlusion of the SFA and deep femoral on the right side, did not see any vessels reconstructed at the level of the knee, at the end of the procedure I repeated DSA evaluation at the level of the knee with another injection that did not show any vessel filling in that area. I advanced pigtail catheter to the abdominal aorta and did abdominal aortogram with bilateral runoff then I placed a rim catheter at the left common iliac artery and did runoff to the left leg then did DSA with injection at the level of the knee on the left side. At the end of the procedure sheath was removed and manual pressure applied FINDINGS: Abdominal aorta: There is atherosclerotic disease in the abdominal aorta, the left renal artery appeared normal, the right renal artery has severe ostial stenosis with what appears to be atrophy of the right kidney, SMA and MONQIUE are normal. Right lower extremity: Patient had a stent at the right common iliac artery, mild in-stent restenosis, the common femoral artery is occluded and there is no construction of SFA or deep femoral artery, I performed delayed DSA imaging at the level of the knee with another injection that did not show any vessel reconstructed at the level of the knee. Left lower extremity: There is a total occlusion at the proximal portion of the left SFA, patient had long iliac stent that is occluded, the left common femoral artery is really constructed with collaterals then the SFA is occluded, the deep femoral artery has some disease but patent, heavy calcification noted throughout the SFA, popliteal artery is reconstructed with collateral, DSA imaging at the level of the knee show small but patent 3 vessels at the level of the knee. Slow flow. CONCLUSIONS: Severe peripheral arterial disease with multiple level of obstruction as described below: 1. Severe ostial right renal artery stenosis with atrophy of the right kidney 2. Total occlusion of the right common femoral artery and there is no vessels seen in the right leg with delayed imaging. 3. On the left side there is total occlusion of the proximal left common iliac, reconstructed at the level of the common femoral artery, occluded left SFA, diseased but patent left deep femoral artery, reconstructed popliteal artery by collaterals with patent three-vessels at the level of the knee. Slow flow noted DISCUSSION AND RECOMMENDATIONS: Patient has extensive peripheral arterial disease, she might benefit from hybrid procedure with surgery and endarterectomy or bypass. The right renal artery need to be addressed. Patient will be referred for vascular surgery evaluation Anesthesia Type: Conscious Sedation Estimated blood loss (mL): 15 ml Contrast Amount: 45 ml Total Radiation Dose: 45 mGy Post-Procedure Diagnosis Post-operative diagnosis: Nonhealing foot ulcers Peripheral arterial disease Renal artery stenosis Hypertension Hyperlipidemia LALITA MAURO MD Apr 02, 2021 09:38
[2021-04-02] MEDS ORDERED: oxyCODONE/APAP 5/325MG (PERCOCET 5) TABLET ONE (10:59)
[2021-04-02] MEDS ORDERED: oxyCODONE/APAP 5/325MG (PERCOCET 5) TABLET PO ONE (11:00)
[2021-04-02] MEDS ORDERED: NITROGLYCERIN 0.1 MG/PATCH (NITRO-DUR) TD ONE (11:00)
== END 2021-04-02 14:00 | disposition home or self-care (01) ==
LOC: CSD 10:08 → CATH 14:00
PROVIDERS: ATTEND Internal Medicine Cardiovascular Disease
DX: L97.529 Non-pressure chronic ulcer of other part of left foot with unspecified severity (principal); L97.519 Non-pressure chronic ulcer of other part of right foot with unspecified severity; I70.1 Atherosclerosis of renal artery; I74.5 Embolism and thrombosis of iliac artery; I74.3 Embolism and thrombosis of arteries of the lower extremities; I73.9 Peripheral vascular disease, unspecified; I10 Essential (primary) hypertension; E78.5 Hyperlipidemia, unspecified; F17.210 Nicotine dependence, cigarettes, uncomplicated; Z79.02 Long term (current) use of antithrombotics/antiplatelets; Z80.9 Family history of malignant neoplasm, unspecified
CPT/HCPCS: 36245; 36248; 71045; 75630; 80053; 80061; 85027; 85610; 85730; 87081; C1769; C1887 ×2; C1894; 36415

== ENCOUNTER → 2021-04-03 | Outpatient (CLI) | payer MEDICARE ==
[~2021-04-03] MED LIST changes: +ATOR40TA PO; +FISH1CAP15 PO; -HEParin (CATH LAB) 2,000 ML IV ONE; -LIDOCAINE 1% INJ 20 ML 20 ML VIAL ONE; -NS IV 1000 ML 1,000 ML IV SCH; -NS IV 1000 ML 1,000 ML ONE
== END ==
LOC: WOUNDCARE 11:34
PROVIDERS: ATTEND Surgery
DX: L89.610 Pressure ulcer of right heel, unstageable (principal); L89.620 Pressure ulcer of left heel, unstageable; L89.890 Pressure ulcer of other site, unstageable; I70.234 Atherosclerosis of native arteries of right leg with ulceration of heel and midfoot; E43 Unspecified severe protein-calorie malnutrition; T65.222A Toxic effect of tobacco cigarettes, intentional self-harm, initial encounter; F17.218 Nicotine dependence, cigarettes, with other nicotine-induced disorders; I96 Gangrene, not elsewhere classified
CPT/HCPCS: 99213

== ENCOUNTER → 2021-04-10 | Outpatient (CLI) | payer MEDICARE | LOC: WOUNDCARE 15:00 | PROVIDERS: ATTEND Surgery | DX: I96 Gangrene, not elsewhere classified (principal); L89.610 Pressure ulcer of right heel, unstageable; L89.620 Pressure ulcer of left heel, unstageable; L89.890 Pressure ulcer of other site, unstageable; I70.234 Atherosclerosis of native arteries of right leg with ulceration of heel and midfoot; E46 Unspecified protein-calorie malnutrition; T65.222A Toxic effect of tobacco cigarettes, intentional self-harm, initial encounter; F17.218 Nicotine dependence, cigarettes, with other nicotine-induced disorders | CPT/HCPCS: 99213 ==

== ENCOUNTER → 2021-04-24 | Outpatient (CLI) | payer MEDICARE | LOC: WOUNDCARE 14:48 | PROVIDERS: ATTEND Surgery | DX: L89.610 Pressure ulcer of right heel, unstageable (principal); L89.620 Pressure ulcer of left heel, unstageable; L89.890 Pressure ulcer of other site, unstageable; I70.234 Atherosclerosis of native arteries of right leg with ulceration of heel and midfoot; E43 Unspecified severe protein-calorie malnutrition; T65.222A Toxic effect of tobacco cigarettes, intentional self-harm, initial encounter; F17.218 Nicotine dependence, cigarettes, with other nicotine-induced disorders | CPT/HCPCS: 99213 ==

== ENCOUNTER → 2021-04-29 | Outpatient (CLI) | payer MEDICARE | LOC: LABNPT 06:39 | PROVIDERS: ATTEND Thoracic Surgery (Cardiothoracic Vascular Surgery) | DX: Z53.9 Procedure and treatment not carried out, unspecified reason (principal) ==

== ENCOUNTER → 2021-04-29 | Outpatient (CLI) | payer MEDICARE | LOC: LABNPT 11:04 | DX: Z01.812 Encounter for preprocedural laboratory examination (principal); Z20.822 Contact with and (suspected) exposure to COVID-19 | CPT/HCPCS: 87635 ==

== ENCOUNTER → 2021-05-13 | Outpatient (CLI) | payer MEDICARE | LOC: WOUNDCARE 14:51 | PROVIDERS: ATTEND Family Medicine | DX: I96 Gangrene, not elsewhere classified (principal); L89.610 Pressure ulcer of right heel, unstageable; L89.620 Pressure ulcer of left heel, unstageable; L89.890 Pressure ulcer of other site, unstageable; I70.234 Atherosclerosis of native arteries of right leg with ulceration of heel and midfoot; E46 Unspecified protein-calorie malnutrition; T65.222A Toxic effect of tobacco cigarettes, intentional self-harm, initial encounter; F17.218 Nicotine dependence, cigarettes, with other nicotine-induced disorders | CPT/HCPCS: 99213 ==

== ENCOUNTER → 2021-05-28 | Outpatient (CLI) | payer MEDICARE | LOC: WOUNDCARE 14:36 | PROVIDERS: ATTEND Family Medicine | DX: L89.610 Pressure ulcer of right heel, unstageable (principal); L89.620 Pressure ulcer of left heel, unstageable; L89.890 Pressure ulcer of other site, unstageable; I70.234 Atherosclerosis of native arteries of right leg with ulceration of heel and midfoot; E43 Unspecified severe protein-calorie malnutrition; T65.222A Toxic effect of tobacco cigarettes, intentional self-harm, initial encounter; I96 Gangrene, not elsewhere classified; F17.218 Nicotine dependence, cigarettes, with other nicotine-induced disorders | CPT/HCPCS: 11042; 97597; G0463 ==

== ENCOUNTER → 2021-06-04 | Outpatient (CLI) | payer MEDICARE | LOC: WOUNDCARE 13:28 | PROVIDERS: ATTEND Family Medicine | DX: I96 Gangrene, not elsewhere classified (principal); L89.610 Pressure ulcer of right heel, unstageable; L89.620 Pressure ulcer of left heel, unstageable; L89.890 Pressure ulcer of other site, unstageable; I70.234 Atherosclerosis of native arteries of right leg with ulceration of heel and midfoot; E43 Unspecified severe protein-calorie malnutrition; T65.222A Toxic effect of tobacco cigarettes, intentional self-harm, initial encounter; F17.218 Nicotine dependence, cigarettes, with other nicotine-induced disorders | CPT/HCPCS: 11042; G0463 ==

== ENCOUNTER → 2021-06-11 | Outpatient (CLI) | payer MEDICARE | LOC: WOUNDCARE 13:17 | PROVIDERS: ATTEND Family Medicine | DX: L89.610 Pressure ulcer of right heel, unstageable (principal); L89.620 Pressure ulcer of left heel, unstageable; L89.890 Pressure ulcer of other site, unstageable; I70.234 Atherosclerosis of native arteries of right leg with ulceration of heel and midfoot; E43 Unspecified severe protein-calorie malnutrition; T65.222A Toxic effect of tobacco cigarettes, intentional self-harm, initial encounter; I96 Gangrene, not elsewhere classified; M65.061 Abscess of tendon sheath, right lower leg; F17.218 Nicotine dependence, cigarettes, with other nicotine-induced disorders | CPT/HCPCS: 87070; 87077; 87205; G0463; 99214 ==

== ENCOUNTER → 2021-06-11 | Outpatient (CLI) | payer MEDICARE ==
[2021-06-11 15:08] LABS: POTASSIUM 3.8 MMOL/L (3.6-5.0)
[2021-06-11 15:09] LABS: CALCIUM 8.6 MG/DL (8.5-10.1)
[2021-06-11 15:13] LABS: CREATININE SERUM 0.64 MG/DL (0.60-1.30)
== END ==
LOC: LAB 14:22
PROVIDERS: ATTEND Family Medicine
DX: L89.610 Pressure ulcer of right heel, unstageable (principal); L89.620 Pressure ulcer of left heel, unstageable; L89.890 Pressure ulcer of other site, unstageable; I70.234 Atherosclerosis of native arteries of right leg with ulceration of heel and midfoot; E43 Unspecified severe protein-calorie malnutrition; T65.222A Toxic effect of tobacco cigarettes, intentional self-harm, initial encounter; F17.218 Nicotine dependence, cigarettes, with other nicotine-induced disorders; M65.061 Abscess of tendon sheath, right lower leg
CPT/HCPCS: 36415; 80048

== ENCOUNTER → 2021-06-16 | Outpatient (CLI) | payer MEDICARE | LOC: RAD 13:47 | PROVIDERS: ATTEND Family Medicine | DX: L89.610 Pressure ulcer of right heel, unstageable (principal); L89.620 Pressure ulcer of left heel, unstageable; L89.890 Pressure ulcer of other site, unstageable; I70.234 Atherosclerosis of native arteries of right leg with ulceration of heel and midfoot; E43 Unspecified severe protein-calorie malnutrition; T65.222A Toxic effect of tobacco cigarettes, intentional self-harm, initial encounter; M65.061 Abscess of tendon sheath, right lower leg; F17.218 Nicotine dependence, cigarettes, with other nicotine-induced disorders ==

== ENCOUNTER → 2021-06-18 | Outpatient (CLI) | payer MEDICARE | LOC: WOUNDCARE 13:25 | PROVIDERS: ATTEND Family Medicine | DX: L89.610 Pressure ulcer of right heel, unstageable (principal); L89.620 Pressure ulcer of left heel, unstageable; L89.890 Pressure ulcer of other site, unstageable; I70.234 Atherosclerosis of native arteries of right leg with ulceration of heel and midfoot; E43 Unspecified severe protein-calorie malnutrition; T65.222A Toxic effect of tobacco cigarettes, intentional self-harm, initial encounter; M65.061 Abscess of tendon sheath, right lower leg; I96 Gangrene, not elsewhere classified; F17.218 Nicotine dependence, cigarettes, with other nicotine-induced disorders | CPT/HCPCS: 99214 ==

== ENCOUNTER → 2021-06-26 | Outpatient (CLI) | payer MEDICARE | LOC: WOUNDCARE 15:06 | PROVIDERS: ATTEND Family Medicine | DX: L89.610 Pressure ulcer of right heel, unstageable (principal); L89.620 Pressure ulcer of left heel, unstageable; L89.890 Pressure ulcer of other site, unstageable; I70.234 Atherosclerosis of native arteries of right leg with ulceration of heel and midfoot; E43 Unspecified severe protein-calorie malnutrition; T65.222A Toxic effect of tobacco cigarettes, intentional self-harm, initial encounter; M65.061 Abscess of tendon sheath, right lower leg; I96 Gangrene, not elsewhere classified; F17.218 Nicotine dependence, cigarettes, with other nicotine-induced disorders | CPT/HCPCS: 99214 ==

== ENCOUNTER → 2021-07-03 | Outpatient (CLI) | payer MEDICARE | LOC: WOUNDCARE 15:02 | PROVIDERS: ATTEND Family Medicine | DX: I96 Gangrene, not elsewhere classified (principal); L89.620 Pressure ulcer of left heel, unstageable; L89.610 Pressure ulcer of right heel, unstageable; L89.890 Pressure ulcer of other site, unstageable; I70.234 Atherosclerosis of native arteries of right leg with ulceration of heel and midfoot; E43 Unspecified severe protein-calorie malnutrition; T65.222A Toxic effect of tobacco cigarettes, intentional self-harm, initial encounter; F17.218 Nicotine dependence, cigarettes, with other nicotine-induced disorders | CPT/HCPCS: 99213 ==

== ENCOUNTER → 2021-07-03 | Outpatient (CLI) | payer MEDICARE ==
[~2021-07-03] MED LIST changes: +CATHETER FLUSH 10 ML SYR IV PRN; +HOLD METFORMIN - RECEIVED CONTRAST 20 ML VIAL IV SCH; +IOHEXOL 350 MG/ML 100 ML (OMNIPAQUE 350) VIAL IV ONE; +NS 100 ML (IVPB) BAG IV ONE
--- NOTE | 2021-07-03 15:21 | Diagnostic Imaging Report ---
PROCEDURE: CT right lower extremity with contrast. TECHNIQUE: Multiple contiguous axial CT images of the right extremity were obtained after intravenous administration of iodinated contrast. Auto Exposure Controls were utilized during the CT exam to meet ALARA standards for radiation dose reduction. DATE: July 03, 2021. INDICATION: 65-year-old female, evaluation for abscess and/or osteomyelitis. Swelling and pain. COMPARISON: None. FINDINGS: There is sideplate and screw fixation hardware along the tibia extending from the level of the mid tibial diaphysis to the distal tibial epiphysis. There is associated hardware related artifact. The hardware appears intact. There is no identified abnormal surrounding lucency. There are additional fixation screws also present which also appear intact. 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 There is severe tibiotalar joint space loss. There is mild subchondral cystic change. There is no prominent osteophyte formation. There is no identified large tibiotalar joint effusion. The additional joint spaces are fairly well preserved. There is no cortical or aggressive bone destruction. There is no identified aggressive appearing periosteal reaction. There are notable limitations for evaluation of the soft tissues, especially in the region of the hardware, with prominent hardware related artifact. There is no clearly identified focal fluid collection or abscess. There is a skin contour abnormality posteriorly near the level of the posterior calcaneus. Recommend correlation for a soft tissue ulcer at this site. There is nonspecific subcutaneous edema at the level of the tibia and fibula and at the level of the foot. IMPRESSION: 1. No CT evidence of osteomyelitis. 2. No clearly identified focal fluid collection or abscess. 3. Skin contour abnormality posteriorly near the level of the posterior calcaneus. Recommend correlation for a skin defect at this location. 4. Intact hardware in the tibia without apparent complication. 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 5. Severe tibiotalar arthritis. No tibiotalar joint effusion or findings to suggest septic arthritis. Dictated by: Dictated on workstation # [id number]
== END ==
LOC: RAD 14:15
PROVIDERS: ATTEND Family Medicine
DX: M19.071 Primary osteoarthritis, right ankle and foot (principal)
CPT/HCPCS: 73701

== ENCOUNTER → 2021-07-03 | Outpatient (CLI) | payer MEDICARE ==
[~2021-07-03] MED LIST changes: -CATHETER FLUSH 10 ML SYR IV PRN; -HOLD METFORMIN - RECEIVED CONTRAST 20 ML VIAL IV SCH; -IOHEXOL 350 MG/ML 100 ML (OMNIPAQUE 350) VIAL IV ONE; -NS 100 ML (IVPB) BAG IV ONE
== END ==
LOC: LAB 14:14
PROVIDERS: ATTEND Thoracic Surgery (Cardiothoracic Vascular Surgery)
DX: Z01.812 Encounter for preprocedural laboratory examination (principal); Z20.822 Contact with and (suspected) exposure to COVID-19
CPT/HCPCS: 87635

== ENCOUNTER → 2021-07-29 | Outpatient (CLI) | payer MEDICARE | LOC: WOUNDCARE 14:55 | PROVIDERS: ATTEND Family Medicine | DX: L89.610 Pressure ulcer of right heel, unstageable (principal); L89.620 Pressure ulcer of left heel, unstageable; I70.234 Atherosclerosis of native arteries of right leg with ulceration of heel and midfoot; E43 Unspecified severe protein-calorie malnutrition; T65.222A Toxic effect of tobacco cigarettes, intentional self-harm, initial encounter; I70.244 Atherosclerosis of native arteries of left leg with ulceration of heel and midfoot; L97.313 Non-pressure chronic ulcer of right ankle with necrosis of muscle; I96 Gangrene, not elsewhere classified; F17.218 Nicotine dependence, cigarettes, with other nicotine-induced disorders | CPT/HCPCS: 99213 ==

== ENCOUNTER → 2021-08-05 | Outpatient (CLI) | payer MEDICARE | LOC: WOUNDCARE 14:51 | PROVIDERS: ATTEND Family Medicine | DX: I70.234 Atherosclerosis of native arteries of right leg with ulceration of heel and midfoot (principal); L89.620 Pressure ulcer of left heel, unstageable; L89.610 Pressure ulcer of right heel, unstageable; E43 Unspecified severe protein-calorie malnutrition; T65.222A Toxic effect of tobacco cigarettes, intentional self-harm, initial encounter; F17.218 Nicotine dependence, cigarettes, with other nicotine-induced disorders; I70.244 Atherosclerosis of native arteries of left leg with ulceration of heel and midfoot; L97.313 Non-pressure chronic ulcer of right ankle with necrosis of muscle; I96 Gangrene, not elsewhere classified | CPT/HCPCS: 11042; A6021; A6212; G0463 ==

== ENCOUNTER → 2021-08-12 | Outpatient (CLI) | payer MEDICARE ==
[2021-08-12 15:18] LABS: POTASSIUM 3.5 MMOL/L (3.6-5.0)
[2021-08-12 15:19] LABS: ALBUMIN 3.2 GM/DL (3.2-4.5)
[2021-08-12 15:20] LABS: CALCIUM 8.4 MG/DL (8.5-10.1)
[2021-08-12 15:21] LABS: TOTAL PROTEIN 6.5 GM/DL (6.4-8.2)
[2021-08-12 15:23] LABS: BILIRUBIN,TOTAL 0.2 MG/DL (0.1-1.0)
[2021-08-12 15:24] LABS: CREATININE SERUM 0.65 MG/DL (0.60-1.30)
== END ==
LOC: LAB 14:42
PROVIDERS: ATTEND Internal Medicine Cardiovascular Disease
DX: E78.2 Mixed hyperlipidemia (principal)
CPT/HCPCS: 36415; 80053; 80061

== ENCOUNTER → 2021-08-12 | Outpatient (CLI) | payer MEDICARE | LOC: WOUNDCARE 14:59 | PROVIDERS: ATTEND Family Medicine | DX: L89.610 Pressure ulcer of right heel, unstageable (principal); L89.620 Pressure ulcer of left heel, unstageable; I70.234 Atherosclerosis of native arteries of right leg with ulceration of heel and midfoot; E43 Unspecified severe protein-calorie malnutrition; T65.222A Toxic effect of tobacco cigarettes, intentional self-harm, initial encounter; I70.244 Atherosclerosis of native arteries of left leg with ulceration of heel and midfoot; L97.313 Non-pressure chronic ulcer of right ankle with necrosis of muscle; I96 Gangrene, not elsewhere classified; F17.218 Nicotine dependence, cigarettes, with other nicotine-induced disorders | CPT/HCPCS: 11042; A6212; G0463 ==

== ENCOUNTER → 2021-09-04 | Outpatient (CLI) | payer MEDICARE ==
[~2021-09-04] MED LIST changes: +ATOR40TA70 PO; +CLOP75TA28 PO; +DOCU-26 PO; +HYDR-700 PO; +IBUP-2473 PO; +PANT40TA52 PO
== END ==
LOC: WOUNDCARE 11:24
PROVIDERS: ATTEND Family Medicine
DX: I96 Gangrene, not elsewhere classified (principal); L89.620 Pressure ulcer of left heel, unstageable; L89.610 Pressure ulcer of right heel, unstageable; I70.234 Atherosclerosis of native arteries of right leg with ulceration of heel and midfoot; E43 Unspecified severe protein-calorie malnutrition; T65.222A Toxic effect of tobacco cigarettes, intentional self-harm, initial encounter; F17.218 Nicotine dependence, cigarettes, with other nicotine-induced disorders; I70.244 Atherosclerosis of native arteries of left leg with ulceration of heel and midfoot; L97.313 Non-pressure chronic ulcer of right ankle with necrosis of muscle
CPT/HCPCS: 99213

== ENCOUNTER 2021-09-05 09:27 | Observation (INO) | payer MEDICARE ==
[2021-09-05] VITALS (11 sets, daily range): BP systolic 99–135; BP diastolic 53–92
[~2021-09-05] VITALS: Ht 157.5 cm; Wt 41.0 kg
[~2021-09-05 09:27] MED LIST changes: -ATOR40TA70 PO; -CLOP75TA28 PO; -DOCU-26 PO; -HYDR-700 PO; -IBUP-2473 PO; -PANT40TA52 PO
--- NOTE | 2021-09-05 09:53 | ED General ---
General Stated Complaint: ANEMIC Source of Information: Patient Exam Limitations: No Limitations History of Present Illness Date Seen by Provider: Sep 05, 2021 Time Seen by Provider: 09:27 Initial Comments Patient to the ER by private conveyance with chief complaint that yesterday she went to [facility] care and had blood drawn because she was pale and fatigued and short of breath. Hemoglobin was noted to be 3.9. She was encouraged to go to the ER that night or they would set her up for outpatient transfusions today. Patient is still fatigued, short of air but no chest pain. No pain anywhere. She had femoral bypasses in April and again in June of last year. She had to have a blood transfusion in April for a hemoglobin of 3. She is not having black tarry stools, hematuria, hematemesis. She had a hip surgery earlier in the year. Dr. Rider is her vascular surgeon at [facility]. Allergies and Home Medications Allergies Coded Allergies: Sulfa (Sulfonamide Antibiotics) (Verified Allergy, Unknown, 06/20/18) Patient Home Medication List Home Medication List Reviewed: Yes Aspirin (Aspirin) 325 Mg Tablet, 325 MG PO 1800, (Reported) Entered as Reported by: ERNST CASTILLO on 04/02/21 0815 Last Action: Reviewed Atorvastatin Calcium (Atorvastatin Calcium) 40 Mg Tablet, 40 MG PO 1800, (Reported) Entered as Reported by: WILLI TRIVEDI on 09/05/211436 Last Action: Reviewed Clopidogrel Bisulfate (Clopidogrel) 75 Mg Tablet, 75 MG PO 1200, (Reported) Entered as Reported by: WILLI TRIVEDI on 09/05/211436 Last Action: Reviewed Docusate Sodium (Stool Softener) 100 Mg Capsule, 100 MG PO BID, (Reported) Entered as Reported by: WILLI TRIVEDI on 09/05/211436 Last Action: Reviewed Hydroxyzine HCl (Hydroxyzine HCl) 25 Mg Tablet, 25 MG PO HS PRN for ITCHING, (Reported) Entered as Reported by: WILLI TRIVEDI on 09/05/211436 Last Action: Reviewed Ibuprofen (Ibuprofen) 200 Mg Tablet, 400 MG PO Q6H PRN for PAIN-MILD (1-4), (Reported) Entered as Reported by: WILLI TRIVEDI on 09/05/211436 Last Action: Reviewed Discontinued Medications Amlodipine Besylate (Amlodipine Besylate) 5 Mg Tablet, 5 MG PO HS, (Reported) Discontinued Reason: No Longer Taking Entered as Reported by: MERCEDES REDDY on 11/26/182210 Last Action: Discontinued Atorvastatin Calcium (Lipitor) 40 Mg Tablet, 40 MG PO DAILY Discontinued Reason: No Longer Taking Prescribed by: LALITA MAURO on 04/02/21926 Last Action: Discontinued Fish Oil/Dha/Epa (Fish Oil 1,200 mg Fish Oil) 1 Each Capsule, 1 EACH PO TID Discontinued Reason: No Longer Taking Prescribed by: LALITA MAURO on 04/02/21926 Last Action: Discontinued Lisinopril (Lisinopril) 20 Mg Tablet, 20 MG PO BID, (Reported) Discontinued Reason: No Longer Taking Entered as Reported by: MERCEDES REDDY on 11/26/182210 Last Action: Discontinued Peg 400/Hypromellose/Glycerin (Visine Dry Eye Relief Drop) 15 Ml Drops, 1 DROP OU DAILY PRN for DRY EYES, (Reported) Discontinued Reason: No Longer Taking Entered as Reported by: ERNST CASTILLO on 04/02/21814 Last Action: Discontinued Review of Systems Review of Systems Constitutional: No chills, No diaphoresis EENTM: No ear discharge, No ear pain Respiratory: No cough; short of breath Cardiovascular: No chest pain, No edema Gastrointestinal: No abdominal pain, No nausea, No vomiting Genitourinary: No discharge, No dysuria Musculoskeletal: No back pain, No joint pain All Other Systems Reviewed Negative Unless Noted: Yes Past Fcjdois-Qktcpm-Wztkmn Hx Immunizations Up To Date Tetanus Booster (TDap): Unknown PED Vaccines UTD: Yes Seasonal Allergies Seasonal Allergies: No Past Medical History Surgeries: Yes Orthopedic Respiratory: No Cardiac: Yes Hypertension Neurological: No [employer] History: Menopausal Genitourinary: No Gastrointestinal: No Musculoskeletal: No Endocrine: No HEENT: No Cancer: No Psychosocial: No Integumentary: No Blood Disorders: No Physical Exam Vital Signs Vital Signs - First Documented 09/05/21 09:36 Pulse 84 Resp 12 B/P (MAP) 93/60 (71) Pulse Ox 100 O2 Delivery Room Air Capillary Refill : Height, Weight, BMI Height: 5'2.00" Weight: 105lbs. oz. 47.296458wa; 14.79 BMI Method:Stated General Appearance: Chronically ill, Thin Eyes: Bilateral Eye Normal Inspection, Bilateral Eye PERRL, Bilateral Eye EOMI HEENT: PERRL/EOMI, TMs Normal, Normal ENT Inspection, Pharynx Normal, Moist Mucous Membranes Neck: Full Range of Motion, Normal Inspection Respiratory: Lungs Clear, Normal Breath Sounds, No Accessory Muscle Use, No Respiratory Distress Cardiovascular: Regular Rate, Rhythm, No Edema, Normal Peripheral Pulses Gastrointestinal: Normal Bowel Sounds, Non Tender, Soft Extremity: Normal Capillary Refill, Normal Inspection, No Pedal Edema Neurologic/Psychiatric: Alert, Oriented x3, No Motor/Sensory Deficits Skin: Warm/Dry, Pallor Progress/Results/Core Measures Suspected Sepsis SIRS Temperature: Pulse: Respiratory Rate: Laboratory Tests 09/05/21 09:47: White Blood Count 8.4 Blood Pressure / Mean: Laboratory Tests 09/05/21 09:47: Creatinine 0.71, INR Comment 1.0, Platelet Count 384, Total Bilirubin 0.3 Results/Orders Lab Results Laboratory Tests Test 09/05/21 09:47 09/05/21 09:50 Range/Units White Blood Count 8.4 4.3-11.0 10^3/uL Red Blood Count 1.76 L 3.80-5.11 10^6/uL Hemoglobin 3.8 *L 11.5-16.0 g/dL Hematocrit 15 *L 35-52 % Mean Corpuscular Volume 82 80-99 fL Mean Corpuscular Hemoglobin 22 L 25-34 pg Mean Corpuscular Hemoglobin Concent 26 L 32-36 g/dL Red Cell Distribution Width 17.8 H 10.0-14.5 % Platelet Count 384 130-400 10^3/uL Mean Platelet Volume 10.5 9.0-12.2 fL Immature Granulocyte % (Auto) 1 % Neutrophils (%) (Auto) 75 42-75 % Lymphocytes (%) (Auto) 14 12-44 % Monocytes (%) (Auto) 7 0-12 % Eosinophils (%) (Auto) 3 0-10 % Basophils (%) (Auto) 0 0-10 % Neutrophils # (Auto) 6.3 1.8-7.8 10^3/uL Lymphocytes # (Auto) 1.2 1.0-4.0 10^3/uL Monocytes # (Auto) 0.6 0.0-1.0 10^3/uL Eosinophils # (Auto) 0.3 0.0-0.3 10^3/uL Basophils # (Auto) 0.0 0.0-0.1 10^3/uL Immature Granulocyte # (Auto) 0.0 0.0-0.1 10^3/uL Percent Immature Platelet Fraction 3.4 0.0-7.6 % Absolute Reticulocyte Count 70 24-90 10e9/uL Percent Reticulocyte Count 4.00 H 0.50-2.40 % Prothrombin Time 13.0 12.2-14.7 SEC INR Comment 1.0 0.8-1.4 Sodium Level 134 L 135-145 MMOL/L Potassium Level 3.6 3.6-5.0 MMOL/L Chloride Level 104 98-107 MMOL/L Carbon Dioxide Level 19 L 21-32 MMOL/L Anion Gap 11 5-14 MMOL/L Blood Urea Nitrogen 10 7-18 MG/DL Creatinine 0.71 0.60-1.30 MG/DL Estimat Glomerular Filtration Rate 94 BUN/Creatinine Ratio 14 Glucose Level 84 70-105 MG/DL Calcium Level 8.5 8.5-10.1 MG/DL Corrected Calcium 9.0 8.5-10.1 MG/DL Total Bilirubin 0.3 0.1-1.0 MG/DL Aspartate Amino Transf (AST/SGOT) 26 5-34 U/L Alanine Aminotransferase (ALT/SGPT) 12 0-55 U/L Alkaline Phosphatase 62 40-136 U/L Troponin I < 0.028 <0.028 NG/ML Total Protein 7.0 6.4-8.2 GM/DL Albumin 3.4 3.2-4.5 GM/DL My Orders Orders - AINSLEY MORRIS Cbc With Automated Diff (09/05/21 09:43) Comprehensive Metabolic Panel (09/05/21 09:43) Troponin I [place] (09/05/21 09:43) Continuous Ekg Monitoring (09/05/21 09:43) Ekg Tracing (09/05/21:43) Ua Culture If Indicated (09/05/21 09:43) Protime With Inr (09/05/21 09:43) Reticulocyte Count (09/05/21 09:43) Vital Signs: Special (Order) (09/05/21 11:12) Consent-Obtain Consent For (09/05/21 11:12) Monitor S/S Transfusion Reacti (09/05/21 11:12) Ns Iv 500 Ml (Sodium Chloride 0.9%) (09/05/21 11:15) Furosemide Injection (Lasix Injection) (09/05/21 11:15) Type And Screen (09/05/21 11:12) Red Cells Leukocytes Reduced (09/05/21 11:12) Iron Tibc %Sat & Ferritin (09/05/21 11:30) Ed Admission (Communication) (09/05/21 12:21) Vital Signs/I&O 09/05/21 09:36 Pulse 84 Resp 12 B/P (MAP) 93/60 (71) Pulse Ox 100 O2 Delivery Room Air Capillary Refill : Progress Note : Time: 11:35 Progress Note Type and cross for 3 units to start, 20 of Lasix prevent cardiac overload as she is a fairly small frail female. We will do this on the observation side. Were talking to Dr. Rao and put in a consult to general surgery. Iron studies and reticulocyte obtained. ECG Initial ECG Impression Date: Sep 05, 2021 Initial ECG Impression Time: 09:58 Initial ECG Rate: 78 Initial ECG Rhythm: Normal Sinus Initial ECG Intervals: Normal Initial ECG Impression: Normal Comment Normal sinus rhythm without clinically relevant ST changes. Departure Communication (Admissions) Time/Spoke to Admitting Phy: 11:30 Discussed the case with Dr. Rao. She accepted patient to the floor in observation to receive blood. She will put an queued orders Time/Spoke to Consulting Phy: 11:[address] Rojas he agrees to consult on the case. Impression Primary Impression: Anemia Qualified Codes: D64.9 - Anemia, unspecified Disposition: ADMITTED INPATIENT Condition: Stable Admissions Decision to Admit Reason: Admit from ER (General) Decision to Admit/Date: Sep 05, 2021 Time/Decision to Admit Time: 11:30 Departure-Patient Inst. Referrals: JESSE [facility] DNP (PCP/Family) Primary Care Physician AINSLEY MORRIS Sep 05, 2021 09:53
[2021-09-05 09:58] LABS: BASOPHILS % (AUTO) 0 % (0-10); PLATELET COUNT 384 10^3/uL (130-400)
[2021-09-05 10:00] LABS: ABSOLUTE RETIC # 70 10e9/uL (24-90); EOSINOPHILS # (AUTO) 0.3 10^3/uL (0.0-0.3); EOSINOPHILS % (AUTO) 3 % (0-10); LYMPHOCYTES # (AUTO) 1.2 10^3/uL (1.0-4.0); LYMPHOCYTES % (AUTO) 14 % (12-44); MEAN CORPUSCULAR HEMOGLOBIN 22 pg (25-34); MEAN CORPUSCULAR HGB CONC 26 g/dL (32-36); MEAN CORPUSCULAR VOLUME 82 fL (80-99); MEAN PLATELET VOLUME 10.5 fL (9.0-12.2); MONOCYTES # (AUTO) 0.6 10^3/uL (0.0-1.0); MONOCYTES % (AUTO) 7 % (0-12); NEUTROPHILS # (AUTO) 6.3 10^3/uL (1.8-7.8); NEUTROPHILS % (AUTO) 75 % (42-75); WHITE BLOOD COUNT 8.4 10^3/uL (4.3-11.0)
[2021-09-05 10:04] LABS: HEMOGLOBIN 3.8 g/dL (11.5-16.0)
[2021-09-05 10:05] LABS: HEMATOCRIT 15 % (35-52)
[2021-09-05 10:07] LABS: ALBUMIN 3.4 GM/DL (3.2-4.5)
[2021-09-05 10:08] LABS: CHLORIDE 104 MMOL/L (98-107); POTASSIUM 3.6 MMOL/L (3.6-5.0); SODIUM 134 MMOL/L (135-145)
[2021-09-05 10:09] LABS: CALCIUM 8.5 MG/DL (8.5-10.1)
[2021-09-05 10:10] LABS: GLUCOSE 84 MG/DL (70-105)
[2021-09-05 10:11] LABS: CARBON DIOXIDE 19 MMOL/L (21-32)
[2021-09-05 10:12] LABS: BILIRUBIN,TOTAL 0.3 MG/DL (0.1-1.0)
[2021-09-05 10:13] LABS: ALKALINE PHOSPHATASE 62 U/L (40-136)
[2021-09-05 10:14] LABS: CREATININE SERUM 0.71 MG/DL (0.60-1.30); GFR ESTIMATED 94
[2021-09-05 10:15] LABS: BUN/CREATININE RATIO 14
[2021-09-05 10:16] LABS: ALANINE AMINOTRANSFERASE 12 U/L (0-55)
[2021-09-05] MEDS ORDERED: FUROSEMIDE 40 MG/4 ML INJ (LASIX) IVP ONE (11:15)
[2021-09-05] MEDS ORDERED: NS IV 500 ML 500 ML IV SCH (11:15)
--- NOTE | 2021-09-05 12:00 | Consultation - Surgery ---
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 Previous history of transfusion in April when Dr. Rider was doing a surgery for clogged arteries, she had one done in April and one done in June but does not remember more than the one blood transfusion. She complains of fatigue that started a year ago without a particular event causing it, she describes it as no energy that comes and goes throughout the day. Her fatigue has become progressively worse by about 70% since it first started. Rest makes it better, climbing stair and walking long distances makes it worse or exerting herself. She doesn't remember why she was anemic or given the blood transfusion in April. She has never had colonoscopy or EGD, and denies blood with coughing or blood in the stool. Allergies and Home Medications Allergies Coded Allergies: Sulfa (Sulfonamide Antibiotics) (Verified Allergy, Unknown, 06/20/18) Patient Home Medication List Aspirin (Aspirin) 325 Mg Tablet, 325 MG PO 1800, (Reported) Entered as Reported by: ERNST CASTILLO on 04/02/21 0815 Last Action: Reviewed Atorvastatin Calcium (Atorvastatin Calcium) 40 Mg Tablet, 40 MG PO 1800, (Reported) Entered as Reported by: WILLI TRIVEDI on 09/05/211436 Last Action: Reviewed Clopidogrel Bisulfate (Clopidogrel) 75 Mg Tablet, 75 MG PO 1200, (Reported) Entered as Reported by: WILLI TRIVEDI on 09/05/211436 Last Action: Reviewed Docusate Sodium (Stool Softener) 100 Mg Capsule, 100 MG PO BID, (Reported) Entered as Reported by: WILLI TRIVEDI on 09/05/211436 Last Action: Reviewed Hydroxyzine HCl (Hydroxyzine HCl) 25 Mg Tablet, 25 MG PO HS PRN for ITCHING, (Reported) Entered as Reported by: WILLI TRIVEDI on 09/05/211436 Last Action: Reviewed Ibuprofen (Ibuprofen) 200 Mg Tablet, 400 MG PO Q6H PRN for PAIN-MILD (1-4), ( Reported) Entered as Reported by: WILLI TRIVEDI on 09/05/21 1437 Last Action: Reviewed Discontinued Medications Amlodipine Besylate (Amlodipine Besylate) 5 Mg Tablet, 5 MG PO HS, (Reported) Discontinued Reason: No Longer Taking Entered as Reported by: MERCEDES REDDY on 11/26/182210 Last Action: Discontinued Atorvastatin Calcium (Lipitor) 40 Mg Tablet, 40 MG PO DAILY Discontinued Reason: No Longer Taking Prescribed by: LALITA MAURO on 04/02/21926 Last Action: Discontinued Fish Oil/Dha/Epa (Fish Oil 1,200 mg Fish Oil) 1 Each Capsule, 1 EACH PO TID Discontinued Reason: No Longer Taking Prescribed by: LALITA MAURO on 04/02/21926 Last Action: Discontinued Lisinopril (Lisinopril) 20 Mg Tablet, 20 MG PO BID, (Reported) Discontinued Reason: No Longer Taking Entered as Reported by: MERCEDES REDDY on 11/26/182210 Last Action: Discontinued Peg 400/Hypromellose/Glycerin (Visine Dry Eye Relief Drop) 15 Ml Drops, 1 DROP OU DAILY PRN for DRY EYES, (Reported) Discontinued Reason: No Longer Taking Entered as Reported by: ERNST CASTILLO on 04/02/21814 Last Action: Discontinued Past Pcnbwhy-Palgmi-Yfhglg Hx Patient Social History Drug of Choice: Denies Smoking Status: Current Everyday Smoker Cigarettes Per Day: 12 Type Used: Cigarettes Recent Hopitalizations: No Alcohol Use?: No Have you traveled recently?: No Immunizations Up To Date Tetanus Booster (TDap): Unknown PED Vaccines UTD: Yes Seasonal Allergies Seasonal Allergies: No Surgeries History of Surgeries: Yes Surgeries: Orthopedic Respiratory History of Respiratory Disorde: No Cardiovascular History of Cardiac Disorders: Yes Cardiac Disorders: Hypertension Neurological History of Neurological Disord: No Reproductive System Hx : 1 Hx Total # of Abortions (Spona: 1 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 Genitourinary History of Genitourinary Disor: No Gastrointestinal History of Gastrointestinal Di: No Musculoskeletal History of Musculoskeletal Dis: No Endocrine History of Endocrine Disorders: No HEENT History of HEENT Disorders: No Cancer History of Cancer: No Psychosocial History of Psychiatric Problem: No Integumentary History of Skin or Integumenta: No Blood Transfusions History of Blood Disorders: Yes Hx of Blood Transfusion In april 2021 Family Medical History Significant Family History: Cancer (father) Review of Systems-General Constitutional: No dizziness, No fever; other (fatigue ) EENTM: No ear pain, No blurred vision, No double vision, No eye pain, No vision loss Respiratory: No cough; dyspnea on exertion; No hemoptysis, No orthopnea; short of breath; No wheezing Cardiovascular: No chest pain, No palpitations Gastrointestinal: No abdominal pain, No constipation, No diarrhea, No dysphagia, No hematemesis, No loss of appetite, No nausea, No vomiting Genitourinary: No dysuria, No frequency, No hematuria, No pain Musculoskeletal: No back pain, No muscle weakness, No neck pain Skin: No pruritus, No rash Psychiatric/Neurological: Denies Anxiety, Denies Depressed Physical Exam-General Problems Physical Exam Vital Signs Vital Signs - First Documented 09/05/21 09:36 Pulse 84 Resp 12 B/P (MAP) 93/60 (71) Pulse Ox 100 O2 Delivery Room Air Capillary Refill : Less Than 3 Seconds General Appearance: no apparent distress, thin HEENT: PERRL/EOMI; No photophobia Neck: non-tender, full range of motion Respiratory: chest non-tender, normal breath sounds, no respiratory distress, no accessory muscle use Cardiovascular: regular rate, rhythm, no edema Gastrointestinal: non tender; No distended, No guarding Extremities: No swelling; other (skin lesions on both feet) Neurologic/Psychiatric: alert, oriented x 3 Skin: No cyanosis; other (arms B/L multiple bruises, mild erythema ) Lymphatic: no adenopathy Data Review Labs Laboratory Tests 09/05/21 09:47: White Blood Count 8.4, Red Blood Count 1.76L, Hemoglobin 3.8*L, Hematocrit 15*L, Mean Corpuscular Volume 82, Mean Corpuscular Hemoglobin 22L, Mean Corpuscular Hemoglobin Concent 26L, Red Cell Distribution Width 17.8H, Platelet Count 384, Mean Platelet Volume 10.5, Immature Granulocyte % (Auto) 1, Neutrophils (%) (Auto) 75, Lymphocytes (%) (Auto) 14, Monocytes (%) (Auto) 7, Eosinophils (%) (Auto) 3, Basophils (%) (Auto) 0, Neutrophils # (Auto) 6.3, Lymphocytes # (Auto) 1.2, Monocytes # (Auto) 0.6, Eosinophils # (Auto) 0.3, Basophils # (Auto) 0.0, Immature Granulocyte # (Auto) 0.0, Percent Immature Platelet Fraction 3.4, Absolute Reticulocyte Count 70, Percent Reticulocyte Count 4.00H, Prothrombin Time 13.0, INR Comment 1.0, Sodium Level 134L, Potassium Level 3.6, Chloride Level 104, Carbon Dioxide Level 19L, Anion Gap 11, Blood Urea Nitrogen 10, Creatinine 0.71, Estimat Glomerular Filtration Rate 94, BUN/Creatinine Ratio 14, Glucose Level 84, Calcium Level 8.5, Corrected Calcium 9.0, Total Bilirubin 0.3, Aspartate Amino Transf (AST/SGOT) 26, Alanine Aminotransferase (ALT/SGPT) 12, Alkaline Phosphatase 62, Troponin I < 0.028, Total Protein 7.0, Albumin 3.4 09/05/21 09:50: Assessment/Plan Assessment/Plan Assessment/Plan Anemia Clear liquid diet Transfusion of blood and repeat CBC, IV fluids, stop Aspirin or any anticoagulation meds EGD and Colonoscopy PAD Fatigue Hypotension Stop Lisinopril TONO FERREIRA DO 09/05/21 1514: History of Present Illness History of Present Illness Time Seen by Provider: 14:51 History of Present Illness Surgery asked to consult regarding profound anemia. When I spoke to pt she denied any abdominal pain. States she has had blood transfusion before "when they perforated my Uterus" and thinks maybe she had transfusion after her recent vascular surgery. Other than these times she doesn't remember every being told that she was anemic. She has been "fatigued" for the past year. She thinks she has had dark BMs, but denies them being black or red. Allergies and Home Medications Allergies Coded Allergies: Sulfa (Sulfonamide Antibiotics) (Verified Allergy, Unknown, 06/20/18) Patient Home Medication List Home Medication List Reviewed: Yes Aspirin (Aspirin) 325 Mg Tablet, 325 MG PO 1800, (Reported) Entered as Reported by: ERNST CASTILOL on 04/02/21 0815 Last Action: Reviewed Atorvastatin Calcium (Atorvastatin Calcium) 40 Mg Tablet, 40 MG PO 1800, (Reported) Entered as Reported by: WILLI TRIVEDI on 09/05/21 1437 Last Action: Reviewed Clopidogrel Bisulfate (Clopidogrel) 75 Mg Tablet, 75 MG PO 1200, (Reported) Entered as Reported by: WILLI TRIVEDI on 09/05/211436 Last Action: Reviewed Docusate Sodium (Stool Softener) 100 Mg Capsule, 100 MG PO BID, (Reported) Entered as Reported by: WILLI TRIVEDI on 09/05/211436 Last Action: Reviewed Hydroxyzine HCl (Hydroxyzine HCl) 25 Mg Tablet, 25 MG PO HS PRN for ITCHING, (Reported) Entered as Reported by: WILLI TRIVEDI on 09/05/211436 Last Action: Reviewed Ibuprofen (Ibuprofen) 200 Mg Tablet, 400 MG PO Q6H PRN for PAIN-MILD (1-4), (Rep orted) Entered as Reported by: WILLI TRIVEDI on 09/05/211436 Last Action: Reviewed Discontinued Medications Amlodipine Besylate (Amlodipine Besylate) 5 Mg Tablet, 5 MG PO HS, (Reported) Discontinued Reason: No Longer Taking Entered as Reported by: MERCEDES REDDY on 11/26/182210 Last Action: Discontinued Atorvastatin Calcium (Lipitor) 40 Mg Tablet, 40 MG PO DAILY Discontinued Reason: No Longer Taking Prescribed by: LALITA MAURO on 04/02/21926 Last Action: Discontinued Fish Oil/Dha/Epa (Fish Oil 1,200 mg Fish Oil) 1 Each Capsule, 1 EACH PO TID Discontinued Reason: No Longer Taking Prescribed by: LALITA MAURO on 04/02/21926 Last Action: Discontinued Lisinopril (Lisinopril) 20 Mg Tablet, 20 MG PO BID, (Reported) Discontinued Reason: No Longer Taking Entered as Reported by: MERCEDES REDDY on 11/26/182210 Last Action: Discontinued Peg 400/Hypromellose/Glycerin (Visine Dry Eye Relief Drop) 15 Ml Drops, 1 DROP OU DAILY PRN for DRY EYES, (Reported) Discontinued Reason: No Longer Taking Entered as Reported by: ERNST CASTILLO on 04/02/21814 Last Action: Discontinued Past Lebcjcf-Lbjoel-Ttvijk Hx Patient Social History Smoking Status: Current Everyday Smoker Alcohol Use?: No Surgeries History of Surgeries: Yes Surgeries: Orthopedic, Vascular Surgery (B/L Ax-Fem bypass) Respiratory History of Respiratory Disorde: No Cardiovascular History of Cardiac Disorders: Yes Cardiac Disorders: Hypertension, Peripheral Vascular Neurological History of Neurological Disord: No Genitourinary History of Genitourinary Disor: No Gastrointestinal History of Gastrointestinal Di: No (pt denies every having a colonoscopy and no EGD) Musculoskeletal History of Musculoskeletal Dis: Yes Musculoskeletal Disorders: Osteoporosis, Arthritis Endocrine History of Endocrine Disorders: No HEENT History of HEENT Disorders: No Cancer History of Cancer: No Psychosocial History of Psychiatric Problem: No Integumentary History of Skin or Integumenta: No Blood Transfusions History of Blood Disorders: Yes Family Medical History Significant Family History: Cancer (father had lung CA) Review of Systems-General Constitutional: No dizziness, No fever; malaise, weakness, other (fatigue ) EENTM: No ear pain, No blurred vision, No double vision, No eye pain, No vision loss Respiratory: No cough; dyspnea on exertion; No hemoptysis, No orthopnea; short of breath; No wheezing Cardiovascular: No chest pain; Hx of Intervention; No palpitations Gastrointestinal: No abdominal pain; constipation (secondary to pain pills); No diarrhea, No dysphagia, No hematemesis, No loss of appetite, No nausea, No vomiting Genitourinary: No dysuria, No frequency, No hematuria, No pain Musculoskeletal: No back pain; joint pain, muscle stiffness; No neck pain Skin: No pruritus, No rash Psychiatric/Neurological: Denies Anxiety, Denies Depressed, Denies Seizure, Denies Tremors Physical Exam-General Problems Physical Exam General Appearance: no apparent distress, thin Eyes: Bilateral Eye PERRL, Bilateral Eye EOMI HEENT: pharynx normal; No photophobia Neck: non-tender, full range of motion Respiratory: chest non-tender, lungs clear, normal breath sounds, no respiratory distress, no accessory muscle use Cardiovascular: regular rate, rhythm, no murmur, JVD, other (can feel and see her Axillary-Femoral bypass graft in her abdomen) Gastrointestinal: non tender, no organomegaly; No distended, No guarding Rectal: deferred Back: no CVA tenderness, no vertebral tenderness Extremities: no pedal edema, no calf tenderness; No swelling; other (skin lesions on both feet) 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 Discussed the procedures, including risks and complications not limited to pain, bleeding, infection, scar and even intestinal or esophageal perforation. PAD Fatigue Hypotension Stop Lisinopril Supervisory-Addendum Brief Verification & Attestation Participated in pt care: history, MDM, physical Personally performed: exam, history, MDM, supervision of care Care discussed with: Medical Student Procedures: n/a Verification and Attestation of Medical Student E/M Service A medical student performed and documented this service. I then reviewed and verified all information documented by the medical student and made modifications to such information, when appropriate. I personally performed a physical exam, medical decision making and then discussed any differences between the notes and made revisions as necessary to create one note. Tono Ferreira , 09/05/21 , 15:21 ÓSCAR DILL Sep 05, 2021 12:00 TONO FERREIRA DO Sep 05, 2021 15:14
--- NOTE | 2021-09-05 12:41 | History & Physical-Hospitalist ---
History of Present Illness HPI/Chief Complaint Chief complaint: Severe anemia History of present illness: This is a 66-year-old white female patient of Dunia Carvalho who presented to the ER 1 day after labs obtain by PCP showing hemoglobin of 3.8. She has been very short of breath and fatigued and pale and did receive blood transfusion last fall after she had femoral-popliteal bypass by Dr. Rider. She has never had an EGD or colonoscopy. She continues to smoke. Dr. Rojas will be consulted for scopes. She appears to be very thin and debilitated with BMI of 16 and I suspect neoplastic process in the gastrointestinal tract as source of bleeding. 3 units will be given. Date Seen 09/05/21 Time Seen by a Provider: 13:00 Attending Physician Evie Ta Patricia L Arnp, Dnp Referring Physician Date of Admission Sep 05, 2021 at 12:23 Home Medications & Allergies Home Medications Reviewed patient Home Medication Reconciliation performed by pharmacy medication reconciliations pest control chemical technician and/or nursing. Patients Allergies have been reviewed. Allergies Allergies Coded Allergies Sulfa (Sulfonamide Antibiotics) (Verified Allergy, Unknown, 06/20/18) Past Dfroixa-Uggslr-Tgtcjh Hx Patient Social History Marrital Status: single Employed/Student: retired Tobacco Use?: Yes Smoking Status: Current Everyday Smoker Use of E-Cig and/or Vaping dev: No Substance use?: No Alcohol Use?: No Pt feels they are or have been: No Immunizations Up To Date Tetanus Booster (TDap): Unknown PED Vaccines UTD: Yes Seasonal Allergies Seasonal Allergies: No Current Status Advance Directives: No Primary Language: Kuwaiti Preferred Spoken Language: Kuwaiti Past Medical History Surgeries: Orthopedic, Vascular Surgery COPD Hypertension [employer] History: Menopausal Blood Disorders: Yes Family Medical History Cancer (father) Review of Systems Constitutional: see HPI, dizziness, malaise, weakness EENTM: no symptoms reported Respiratory: dyspnea on exertion Cardiovascular: no symptoms reported Gastrointestinal: no symptoms reported Genitourinary: no symptoms reported Musculoskeletal: no symptoms reported Skin: no symptoms reported Psychiatric/Neurological: No Symptoms Reported All Other Systems Reviewed Negative Unless Noted: Yes Physical Exam Physical Exam Vital Signs Vital Signs - First Documented 09/05/21 09/05/21 09:36 13:30 Temp 36.8 Pulse 84 Resp 12 B/P (MAP) 93/60 (71) Pulse Ox 100 O2 Delivery Room Air Capillary Refill : Less Than 3 Seconds Height, Weight, BMI Height: 5'2.00" Weight: 105lbs. oz. [id number]; 16.00 BMI Method:Stated General Appearance: No Apparent Distress, Anxious, Chronically ill, Thin, Other (Pale) Eyes: Right Eye Normal Inspection, Right Eye PERRL HEENT: PERRL/EOMI, Normal ENT Inspection, Pharynx Normal, Moist Mucous Membranes Neck: Full Range of Motion, Normal Inspection, Non Tender Respiratory: Chest Non Tender, Lungs Clear, Normal Breath Sounds, No Accessory Muscle Use, No Respiratory Distress Cardiovascular: Regular Rate, Rhythm, No Edema, No Gallop, No JVD, No Murmur, Normal Peripheral Pulses Gastrointestinal: Normal Bowel Sounds, No Organomegaly, No Pulsatile Mass, Non Tender, Soft Back: Normal Inspection, No CVA Tenderness, No Vertebral Tenderness Extremity: Normal Capillary Refill, Normal Inspection, Normal Range of Motion, Non Tender, No Calf Tenderness, No Pedal Edema Neurologic/Psychiatric: Alert, Oriented x3, No Motor/Sensory Deficits, Normal Mood/Affect Skin: Normal Color, Warm/Dry Lymphatic: No Adenopathy Results Results/Procedures Labs Laboratory Tests 09/05/21 09:47 Patient resulted labs reviewed. Assessment/Plan Admission Diagnosis Assessment: Severe anemia symptomatic Severe vascular disease Current smoker BMI 16 and very frail Plan: Transfusion Scopes Hold Plavix and aspirin Admission Status: Observation Diagnosis/Problems Diagnosis/Problems (1) Anemia Status: Acute Qualifiers: Anemia type: unspecified type Qualified Codes: D64.9 - Anemia, unspecified EVIE TA DO Sep 05, 2021 12:41
[2021-09-05] MEDS ORDERED: diphenhydrAMINE 25 MG TAB (BENADRYL) PO PRN (13:00)
[2021-09-05] MEDS ORDERED: MILK OF MAGNESIA 400 MG/5 ML 30 ML UDC PO PRN (13:00)
[2021-09-05] MEDS ORDERED: HYDROcodone/APAP 5 MG/325 MG (LORTAB) TAB PO PRN (13:00)
[2021-09-05] MEDS ORDERED: ANTACID SUSP 30 ML UDC (MYLANTA) PO PRN (13:00)
[2021-09-05] MEDS ORDERED: ACETAMINOPHEN 325 MG TABLET PO PRN (13:00)
[2021-09-05] MEDS ORDERED: diphenhydrAMINE 50 MG/ML INJ (BENADRYL) IVP PRN (13:00)
[2021-09-05] MEDS ORDERED: LACTULOSE SYRUP 10GM/15ML (ENULOSE) 30ML UDC PO PRN (13:00)
[2021-09-05] MEDS ORDERED: morphine INJ 4 MG/ML 1 ML (VIAL/SYRINGE) IV PRN (13:00)
[2021-09-05] MEDS ORDERED: ONDANSETRON 4 MG/2 ML (SDV) Z0FRAN IV PRN (13:00)
[2021-09-05] MEDS ORDERED: ONDANSETRON 4 MG (ZOFRAN) ORAL DISSOLVE TAB PO PRN (13:00)
[2021-09-05] MEDS ORDERED: MELATONIN 3 MG TABLET PO PRN (13:00)
[2021-09-05] MEDS ORDERED: BISACODYL 10 MG SUPP (DULCOLAX) PR PRN (13:00)
[2021-09-05] MEDS ORDERED: PATIENT MAY USE OWN MEDS, ALL PO SCH (13:00)
[2021-09-05] MEDS ORDERED: polyethylene glycoL POWDER 17 GM (MIRALAX) PACK PO PRN (13:00)
[2021-09-05] MEDS ORDERED: CALCIUM CARBONATE 500 MG (TUMS) TAB.CHEW PO PRN (13:00)
[2021-09-05] MEDS ORDERED: CYANOCOBALAMIN INJ 1000 MCG/ML IM ONE (13:30)
[2021-09-05] MEDS ORDERED: NS IV 500 ML 500 ML ONE (14:12)
[2021-09-05] MEDS ORDERED: ATOR40TA70 PO (14:37)
[2021-09-05] MEDS ORDERED: HYDR-700 PO (14:37)
[2021-09-05] MEDS ORDERED: CLOP75TA28 PO (14:37)
[2021-09-05] MEDS ORDERED: DOCU-26 PO (14:37)
[2021-09-05] MEDS ORDERED: IBUP-2473 PO (14:37)
[2021-09-05] MEDS ORDERED: BISACODYL 5 MG (DULCOLAX) TABLET PO SCH (15:00)
[2021-09-05] MEDS ORDERED: RT-ALBUTEROL SULF 2.5 MG/3 ML PRE-MIX VIAL INH PRN (16:30)
[2021-09-05] MEDS ORDERED: BISACODYL 5 MG (DULCOLAX) TABLET PO NR (17:00)
[2021-09-05] MEDS ORDERED: polyethylene glycoL Bowel Prep(MIRALAX) 238 GM PO NR (18:00)
[2021-09-05] MEDS ORDERED: FUROSEMIDE 40 MG/4 ML INJ (LASIX) ONE (18:24)
[2021-09-05] MEDS ORDERED: hydrOXYzine (VISTARIL/ATARAX) 25 MG capsule/tablet PO PRN (21:30)
[2021-09-05] MEDS: SENNOSIDES 8.6 MG (SENOKOT) TAB PO SCH (21:34)
[2021-09-05] MEDS: PANTOPRAZOLE 40 MG (PROTONIX) TAB PO SCH (21:34)
[2021-09-05] MEDS: DOCUSATE SODIUM 100 MG (COLACE) CAP PO SCH ×2 (21:34)
[2021-09-06] VITALS (9 sets, daily range): BP systolic 95–154; BP diastolic 51–87
[2021-09-06 06:30] LABS: BASOPHILS # (AUTO) 0.1 10^3/uL (0.0-0.1); BASOPHILS % (AUTO) 1 % (0-10); EOSINOPHILS # (AUTO) 0.2 10^3/uL (0.0-0.3); EOSINOPHILS % (AUTO) 2 % (0-10); HEMATOCRIT 32 % (35-52); HEMOGLOBIN 10.2 g/dL (11.5-16.0); LYMPHOCYTES # (AUTO) 0.7 10^3/uL (1.0-4.0); LYMPHOCYTES % (AUTO) 10 % (12-44); MEAN CORPUSCULAR HEMOGLOBIN 27 pg (25-34); MEAN CORPUSCULAR HGB CONC 32 g/dL (32-36); MEAN CORPUSCULAR VOLUME 85 fL (80-99); MEAN PLATELET VOLUME 10.2 fL (9.0-12.2); MONOCYTES # (AUTO) 0.5 10^3/uL (0.0-1.0); MONOCYTES % (AUTO) 8 % (0-12); NEUTROPHILS # (AUTO) 5.6 10^3/uL (1.8-7.8); NEUTROPHILS % (AUTO) 80 % (42-75); PLATELET COUNT 271 10^3/uL (130-400); WHITE BLOOD COUNT 7.1 10^3/uL (4.3-11.0)
--- NOTE | 2021-09-06 06:43 | Progress Note - Hospitalist ---
Subjective HPI/CC On Admission Date Seen by Provider: Sep 06, 2021 Time Seen by Provider: 10:00 Chief complaint: Severe anemia History of present illness: This is a 66-year-old white female patient of Dunia Carvalho who presented to the ER 1 day after labs obtain by PCP showing hemoglobin of 3.8. She has been very short of breath and fatigued and pale and did receive blood transfusion last fall after she had femoral-popliteal bypass by Dr. Rider. She has never had an EGD or colonoscopy. She continues to smoke. Dr. Rojas will be consulted for scopes. She appears to be very thin and debilitated with BMI of 16 and I suspect neoplastic process in the gastrointestinal tract as source of bleeding. 3 units will be given. Subjective/Events-last exam Patient very hungry Awaiting scopes Appreciate Dr. Rojas 3 units of blood brought hemoglobin to 10 She wants to go home and this was before scopes Very odd behavior Review of Systems General: Fatigue, Malaise Objective Exam Vital Signs Vital Signs Date Time Temp Pulse Resp B/P (MAP) Pulse Ox O2 Delivery O2 Flow Rate FiO2 09/07/21 04:09 36.7 65 18 109/67 (81) 99 Room Air 09/06/21 09:25 0.00 Capillary Refill : Less Than 3 Seconds General Appearance: No Apparent Distress, WD/WN, Chronically ill, Thin Respiratory: Lungs Clear, Normal Breath Sounds Cardiovascular: Regular Rate, Rhythm Neurologic/Psychiatric: Alert, Oriented x3, No Motor/Sensory Deficits, Normal Mood/Affect Results/Procedures Lab Laboratory Tests 09/06/21 06:02 09/07/21 04:55 Patient resulted labs reviewed. Assessment/Plan Assessment and Plan Assess & Plan/Chief Complaint Assessment: Severe anemia symptomatic Severe vascular disease Current smoker BMI 16 and very frail Plan: Transfusion Scopes Hold Plavix and aspirin 09/06/2021: EGD and colonoscopy today Diagnosis/Problems Diagnosis/Problems (1) Anemia Status: Acute Qualifiers: Anemia type: unspecified type Qualified Codes: D64.9 - Anemia, unspecified Clinical Quality Measures DVT/VTE Risk/Contraindication: Contraindications-Pharm: Other *list below* Other: BELEN Rodriguez DO Sep 06, 2021 06:43
[2021-09-06 06:52] LABS: ALBUMIN 3.3 GM/DL (3.2-4.5); POTASSIUM 3.7 MMOL/L (3.6-5.0)
[2021-09-06 06:53] LABS: CALCIUM 8.3 MG/DL (8.5-10.1)
[2021-09-06 06:54] LABS: TOTAL PROTEIN 6.8 GM/DL (6.4-8.2)
[2021-09-06 06:56] LABS: BILIRUBIN,TOTAL 1.3 MG/DL (0.1-1.0)
[2021-09-06 06:58] LABS: CREATININE SERUM 0.65 MG/DL (0.60-1.30)
[2021-09-06] MEDS: SENNOSIDES 8.6 MG (SENOKOT) TAB PO SCH ×2 (08:35→19:36)
[2021-09-06] MEDS: DOCUSATE SODIUM 100 MG (COLACE) CAP PO SCH ×4 (08:35→19:36)
[2021-09-06] MEDS: PANTOPRAZOLE 40 MG (PROTONIX) TAB PO SCH ×2 (08:35→19:36)
[2021-09-06] MEDS: NICOTINE PATCH REMOVAL TP SCH (08:36)
--- NOTE | 2021-09-06 08:48 | Progress Note - Surgery ---
ÓSCAR DILL 09/06/21 0848: Subjective Date Seen by a Provider: Sep 06, 2021 Time Seen by a Provider: 08:15 Subjective/Events-last exam Pt was tranfused with 3 units of blood of 270ml yesterday and her hemoglobin has increased to 10.2 from 3.8. She has been NPO since midnight and completed bowel prep for EGD and colonoscopy for today. Denies blood in the stool, urine, and coughing blood, and denies melena, Review of Systems General: No Chills; Other (denies fever) HEENT: No Eye Pain, No Ear Pain Pulmonary: No Cough, No Pleuritic Chest Pain Cardiovascular: No: Chest Pain, Palpitations Gastrointestinal: Diarrhea (bowel prep); No: Nausea, Vomiting, Abdominal Pain, Constipation, Melena, Hematochezia Genitourinary: No Incontinence, No Hematuria Musculoskeletal: No: neck pain, back pain Neurological: No: Change in speech, Confusion Objective Exam Vital Signs Date Time Temp Pulse Resp B/P (MAP) Pulse Ox O2 Delivery O2 Flow Rate FiO2 09/06/21 07:27 36.8 81 16 144/87 (106) 100 Room Air 09/06/21 07:00 66 09/06/21 03:37 35.9 72 20 106/51 (69) 97 Room Air 09/06/21 02:30 35.9 73 20 106/51 97 Room Air 09/06/21 00:24 66 09/06/21 00:10 37.2 79 18 154/82 (106) 100 Room Air 09/05/21 22:26 36.9 67 18 108/57 99 Room Air 09/05/21 22:11 35.9 68 18 120/56 100 Room Air 09/05/21 21:55 35.9 72 18 120/56 100 Room Air 09/05/21 21:00 37.1 75 17 118/70 (86) 99 Room Air 09/05/21 20:00 Room Air 09/05/21 19:01 77 09/05/21 18:45 36.2 78 18 122/92 100 09/05/21 18:30 36.0 86 16 135/61 Room Air 09/05/21 18:27 36.0 86 16 125/61 Room Air 09/05/21 16:23 36.8 77 99 09/05/21 16:00 36.8 77 12 113/53 99 09/05/21 16:00 36.8 77 12 113/53 (73) 99 Room Air 09/05/21 15:45 36.3 69 12 99/54 100 Room Air 09/05/21 14:35 78 09/05/21 13:34 Room Air 09/05/21 13:30 36.8 80 18 99/53 (68) 100 Room Air 09/05/21 13:09 80 11 102/59 98 Room Air 09/05/21 09:36 84 12 93/60 (71) 100 Room Air I & O 09/06/21 07:00 Intake Total 2560 ml Output Total 1300 ml Balance 1260 ml Capillary Refill : Less Than 3 Seconds General Appearance: No Apparent Distress, Chronically ill, Thin HEENT: PERRL/EOMI, Pharynx Normal Neck: Full Range of Motion, Normal Inspection, Non Tender Respiratory: Chest Non Tender, Lungs Clear, Normal Breath Sounds, No Accessory Muscle Use, No Respiratory Distress Cardiovascular: Regular Rate, Rhythm, No Edema, No Gallop, No Murmur Gastrointestinal: non tender, no organomegaly, guarding Extremity: Normal Inspection, Non Tender, No Calf Tenderness, No Pedal Edema Neurologic/Psychiatric: Alert, Oriented x3, No Motor/Sensory Deficits, Normal Mood/Affect Skin: Normal Color, Warm/Dry Lymphatic: No Adenopathy Results Lab Laboratory Tests 09/05/21 09:47: White Blood Count 8.4, Red Blood Count 1.76L, Hemoglobin 3.8*L, Hematocrit 15*L, Mean Corpuscular Volume 82, Mean Corpuscular Hemoglobin 22L, Mean Corpuscular Hemoglobin Concent 26L, Red Cell Distribution Width 17.8H, Platelet Count 384, Mean Platelet Volume 10.5, Immature Granulocyte % (Auto) 1, Neutrophils (%) (A uto) 75, Lymphocytes (%) (Auto) 14, Monocytes (%) (Auto) 7, Eosinophils (%) (Auto) 3, Basophils (%) (Auto) 0, Neutrophils # (Auto) 6.3, Lymphocytes # (Auto) 1.2, Monocytes # (Auto) 0.6, Eosinophils # (Auto) 0.3, Basophils # (Auto) 0.0, Immature Granulocyte # (Auto) 0.0, Percent Immature Platelet Fraction 3.4, Absolute Reticulocyte Count 70, Percent Reticulocyte Count 4.00H, Prothrombin Time 13.0, INR Comment 1.0, Sodium Level 134L, Potassium Level 3.6, Chloride Level 104, Carbon Dioxide Level 19L, Anion Gap 11, Blood Urea Nitrogen 10, Creatinine 0.71, Estimat Glomerular Filtration Rate 94, BUN/Creatinine Ratio 14, Glucose Level 84, Calcium Level 8.5, Corrected Calcium 9.0, Iron Level 12L, Total Iron Binding Capacity 431H, Unsaturated Iron Binding Capacity 419, Transferrin % Saturation 3L, Ferritin 23.2, Total Bilirubin 0.3, Aspartate Amino Transf (AST/SGOT) 26, Alanine Aminotransferase (ALT/SGPT) 12, Alkaline Phosphatase 62, Troponin I < 0.028, Total Protein 7.0, Albumin 3.4, Vitamin B12 Level 451, Folate >20.0 09/05/21 09:50: 09/05/21 18:00: Influenza Type A (RT-PCR) Not Detected, Influenza Type B (RT-PCR) Not Detected, SARS-CoV-2 RNA (RT-PCR) Not Detected 09/06/21 06:02: White Blood Count 7.1, Red Blood Count 3.80, Hemoglobin 10.2#L, Hematocrit 32L, Mean Corpuscular Volume 85, Mean Corpuscular Hemoglobin 27, Mean Corpuscular Hemoglobin Concent 32, Red Cell Distribution Width 15.7H, Platelet Count 271, Mean Platelet Volume 10.2, Immature Granulocyte % (Auto) 0, Neutrophils (%) (Auto) 80H, Lymphocytes (%) (Auto) 10L, Monocytes (%) (Auto) 8, Eosinophils (%) (Auto) 2, Basophils (%) (Auto) 1, Neutrophils # (Auto) 5.6, Lymphocytes # (Auto) 0.7L, Monocytes # (Auto) 0.5, Eosinophils # (Auto) 0.2, Basophils # (Auto) 0.1, Immature Granulocyte # (Auto) 0.0, Sodium Level 136, Potassium Level 3.7, Chloride Level 107, Carbon Dioxide Level 18L, Anion Gap 11, Blood Urea Nitrogen 9, Creatinine 0.65, Estimat Glomerular Filtration Rate 97, BUN/Creatinine Ratio 14, Glucose Level 86, Calcium Level 8.3L, Corrected Calcium 8.9, Total Bilirubin 1.3H, Aspartate Amino Transf (AST/SGOT) 21, Alanine Aminotransferase (ALT/SGPT) 10, Alkaline Phosphatase 61, Total Protein 6.8, Albumin 3.3 Assessment/Plan Assessment/Plan Assessment/Plan Anemia NPO after midnight and until scopes are performed Transfusion of three units of blood each 270ml yesterday, repeat CBC, IV fluids, stop Aspirin and hold Plavix Plan for EGD and Colonoscopy today, consent given yesterday with discussion of the procedures, including risks and complications not limited to pain, bleeding, infection, scar and even intestinal or esophageal perforation. PAD Fatigue HTN Monitor Blood pressure Clinical Quality Measures DVT/VTE Risk/Contraindication: Contraindications-Pharm: Other *list below* Other: PARTH Lopez DO 09/06/21 1151: Subjective Time Seen by a Provider: 11:07 Subjective/Events-last exam Pt seen and examined, in good spirits and appears more alert today. Had a BM just before I saw her and it was still "brown". Denies abdominal pain. Review of Systems General: No Chills; Other (denies fever) Pulmonary: No Cough, No Pleuritic Chest Pain Cardiovascular: No: Chest Pain, Palpitations Gastrointestinal: Diarrhea (bowel prep); No: Nausea, Vomiting, Abdominal Pain, Constipation, Melena, Hematochezia Objective Exam General Appearance: No Apparent Distress, Chronically ill, Thin HEENT: PERRL/EOMI, Pharynx Normal Respiratory: Chest Non Tender, Lungs Clear, Normal Breath Sounds, No Accessory Muscle Use, No Respiratory Distress Cardiovascular: Regular Rate, Rhythm, No Murmur Gastrointestinal: non tender, soft, no organomegaly Neurologic/Psychiatric: Alert, Oriented x3 Assessment/Plan Assessment/Plan Assessment/Plan Anemia NPO after midnight and until scopes are performed Transfusion of three units of blood each 270ml yesterday, repeat CBC, IV fluids, stop Aspirin and hold Plavix Plan for EGD and Colonoscopy today, consent given yesterday with discussion of the procedures, including risks and complications not limited to pain, bleeding, infection, scar and even intestinal or esophageal perforation. PAD Fatigue HTN - Monitor Blood pressure Supervisory-Addendum Brief Verification & Attestation Participated in pt care: history, MDM, physical Personally performed: exam, history, MDM, supervision of care Care discussed with: Medical Student Procedures: n/a Verification and Attestation of Medical Student E/M Service A medical student performed and documented this service. I then reviewed and verified all information documented by the medical student and made modifications to such information, when appropriate. I personally performed a physical exam, medical decision making and then discussed any differences between the notes and made revisions as necessary to create one note. Parth Rojas , 09/06/21 , 11:50 ÓSCAR DILL Sep 06, 2021 08:48 APRTH ROJAS DO Sep 06, 2021 11:51
[2021-09-06] MEDS: NICOTINE 21 MG (NICODERM) PATCH TD SCH (10:01)
[2021-09-06] MEDS ORDERED: LACTATED RINGERS 1,000 ML IV ONE (12:31)
[2021-09-06] MEDS ORDERED: proPOfol 200 MG/20 ML (DIPRIVAN) VIAL IV ONE ×2 (12:40→13:27)
[2021-09-06] MEDS ORDERED: MIDAZOLAM 2 MG/2 ML (VERSED) VIAL ONE (12:40)
[2021-09-06] MEDS: LACTATED RINGERS 1,000 ML IV SCH ×2 (12:40→21:51)
--- NOTE | 2021-09-06 13:42 | Progress Note-Post Operative ---
Post-Operative Progess Note Surgeon (s)/Russian Language Professor (s) Surgeon TONO FERREIRA DO Russian Language Professor: BITA Keys Pre-Operative Diagnosis anemia Post-Operative Diagnosis Duodenal ulcer Duodenal diverticula Hiatal hernia Severe Esophagitis Fecal impaction Colon polyps Procedure & Operative Findings Date of Procedure 09/06/21 Procedure Performed/Findings EGD with bx Colonoscopy with snare polypectomy PROCEDURE NOTE: After informed consent was obtained, the patient was brought to the endoscopy suite, placed in bed in left lateral decubitus position. She was administered IV sedation by the STRIP CUTTING MACHINE OPERATOR who then monitored vitals the entire time, heart rate, blood pressure and pulse ox and the scope was inserted down the mouth through the esophagus into the stomach. On the way down, noted some severe esophagitis, took a picture, pushed into the stomach, pushed past the antrum into the duodenum. Noted some moderate gastritis, 2nd and 3rd portion of duodenum looked ok. However, just past antrum saw a large ulcer and also saw a diverticula; pictures were taken and then did a biopsy of the ulcer edge. Pulled back and did a biopsy of antrum and then retroflexed the scope. I saw a large hiatal hernia, took a picture of this and then pulled the scope into the GE junction, took another picture of the hiatal hernia and then did a biopsy of the GE junction. Pushed the scope back into the stomach, suctioned all the air out of the stomach. At this point pulled the scope up the esophagus, saw more ulceration just above GE junction and then in the middle of esophagus. Finally pulled the scope out of the mouth. Switched camera, switched gloves, went down below and started the colonoscopy. Unfortunately, immediately encountered liquid fecal material and large pieces of formed stoo. I attempted to flush this off and continued to push in about 100 cm. I was ablet to get to the hepatic flexure, but there was so much fecal material that I could not clear it all and did not want to cause a problem trying to get to cecum. At this point I decided to remove the scope and started pulling back slowly, insufflating to look c ircumferentially at the ray. Back down transverse colon to the splenic flexure, into the descending colon, down into the sigmoid. I found a few polyps in the Sigmoid and rectum, elected to try and snare one for removal, even this was was hard because of all the stool. Finally into the rectum and saw some minimal internal hemorrhoids as I was pulling the scope out and took a picture of this. The patient tolerated the procedure and she recovered in the endoscopy suite. Anesthesia Type IV sedation by STRIP CUTTING MACHINE OPERATOR Estimated Blood Loss Estimated blood loss (mL): scant Specimens/Packing Specimens Removed duodenal biopsy antral bx GE jxn bx sigmoid polyp TONO FERREIRA DO Sep 06, 2021 13:42
[2021-09-06] MEDS: MAGNESIUM CITRATE 300 ML BTL PO SCH ×2 (14:59→19:37)
[2021-09-06] MEDS ORDERED: hydrOXYzine (VISTARIL/ATARAX) 25 MG capsule/tablet PO ONE (22:00)
[2021-09-07 00:21] VITALS: BP 109/70
[2021-09-07 04:09] VITALS: BP 109/67
[2021-09-07 05:07] LABS: BASOPHILS # (AUTO) 0.1 10^3/uL (0.0-0.1); BASOPHILS % (AUTO) 1 % (0-10); EOSINOPHILS # (AUTO) 0.2 10^3/uL (0.0-0.3); EOSINOPHILS % (AUTO) 4 % (0-10); HEMATOCRIT 30 % (35-52); HEMOGLOBIN 9.6 g/dL (11.5-16.0); LYMPHOCYTES % (AUTO) 18 % (12-44); MEAN CORPUSCULAR HEMOGLOBIN 27 pg (25-34); MEAN CORPUSCULAR HGB CONC 32 g/dL (32-36); MEAN CORPUSCULAR VOLUME 85 fL (80-99); MEAN PLATELET VOLUME 9.8 fL (9.0-12.2); MONOCYTES # (AUTO) 0.5 10^3/uL (0.0-1.0); MONOCYTES % (AUTO) 10 % (0-12); NEUTROPHILS # (AUTO) 3.7 10^3/uL (1.8-7.8); NEUTROPHILS % (AUTO) 67 % (42-75); PLATELET COUNT 255 10^3/uL (130-400); WHITE BLOOD COUNT 5.5 10^3/uL (4.3-11.0)
[2021-09-07 05:23] LABS: POTASSIUM 2.9 MMOL/L (3.6-5.0)
[2021-09-07 05:24] LABS: CALCIUM 8.2 MG/DL (8.5-10.1)
[2021-09-07 05:26] LABS: TOTAL PROTEIN 6.1 GM/DL (6.4-8.2)
[2021-09-07 05:27] LABS: BILIRUBIN,TOTAL 0.7 MG/DL (0.1-1.0)
[2021-09-07 05:29] LABS: CREATININE SERUM 0.61 MG/DL (0.60-1.30)
[2021-09-07] MEDS: MAGNESIUM CITRATE 300 ML BTL PO SCH (05:35)
--- NOTE | 2021-09-07 06:47 | Progress Note - Hospitalist ---
Subjective HPI/CC On Admission Date Seen by Provider: Sep 07, 2021 Time Seen by Provider: 10:00 Chief complaint: Severe anemia History of present illness: This is a 66-year-old white female patient of Dunia Carvalho who presented to the ER 1 day after labs obtain by PCP showing hemoglobin of 3.8. She has been very short of breath and fatigued and pale and did receive blood transfusion last fall after she had femoral-popliteal bypass by Dr. Rider. She has never had an EGD or colonoscopy. She continues to smoke. Dr. Rojas will be consulted for scopes. She appears to be very thin and debilitated with BMI of 16 and I suspect neoplastic process in the gastrointestinal tract as source of bleeding. 3 units will be given. Subjective/Events-last exam Patient doing well Colonoscopy prep continues due to unsuccessful colonoscopy due to stool yesterday Hemoglobin 9.6 Duodenal ulcer discussed with patient Holding aspirin and Plavix Review of Systems General: Fatigue, Malaise Objective Exam Vital Signs Vital Signs Date Time Temp Pulse Resp B/P (MAP) Pulse Ox O2 Delivery O2 Flow Rate FiO2 09/08/21 03:59 37.2 76 17 150/90 (110) 97 Room Air 09/07/21 08:17 0.00 Capillary Refill : Less Than 3 Seconds General Appearance: No Apparent Distress, WD/WN, Chronically ill, Thin Respiratory: Lungs Clear, Normal Breath Sounds Cardiovascular: Regular Rate, Rhythm Neurologic/Psychiatric: Alert, Oriented x3, No Motor/Sensory Deficits, Normal Mood/Affect Results/Procedures Lab Patient resulted labs reviewed. Assessment/Plan Assessment and Plan Assess & Plan/Chief Complaint Assessment: Severe anemia symptomatic Severe vascular disease Current smoker BMI 16 and very frail Plan: Transfusion Scopes Hold Plavix and aspirin 09/06/2021: EGD and colonoscopy today 09/07/2021: Colonoscopy tomorrow after prep evacuates stool Diagnosis/Problems Diagnosis/Problems (1) Anemia Status: Acute Qualifiers: Anemia type: unspecified type Qualified Codes: D64.9 - Anemia, unspecified Clinical Quality Measures DVT/VTE Risk/Contraindication: Contraindications-Pharm: Other *list below* Other: BELEN Rodriguez DO Sep 07, 2021 06:47
[2021-09-07] MEDS ORDERED: IRON SUCROSE 200 MG/10 ML (VENOFER) VIAL IV NR (07:00)
[2021-09-07] MEDS: DOCUSATE SODIUM 100 MG (COLACE) CAP PO SCH ×4 (07:39→20:46)
[2021-09-07] MEDS: NICOTINE PATCH REMOVAL TP SCH (07:39)
[2021-09-07 07:47] VITALS: BP 114/66
[2021-09-07] MEDS: SENNOSIDES 8.6 MG (SENOKOT) TAB PO SCH ×2 (08:02→20:45)
[2021-09-07] MEDS: KCL 20 MEQ TAB (K-DUR) PO SCH ×2 (08:02→20:45)
[2021-09-07] MEDS: PANTOPRAZOLE 40 MG (PROTONIX) TAB PO SCH ×2 (08:03→20:45)
--- NOTE | 2021-09-07 08:52 | Progress Note - Surgery ---
ÓSCAR DILL 09/07/21 0852: Subjective Date Seen by a Provider: Sep 07, 2021 Time Seen by a Provider: 09:10 Subjective/Events-last exam Pt is on a clear liquid diet, she reports her stool is still brown which is the same as yesterday. Denies epigastric pain, N/V, blood in urine or stool, melana, or coughing blood. Objective Exam Vital Signs Date Time Temp Pulse Resp B/P (MAP) Pulse Ox O2 Delivery O2 Flow Rate FiO2 09/07/21 08:17 100 Room Air 0.00 09/07/21 07:47 36.7 61 18 114/66 (82) 100 Room Air 09/07/21 07:00 70 09/07/21 04:09 36.7 65 18 109/67 (81) 99 Room Air 09/07/21 00:50 64 09/07/21 00:21 36.6 68 18 109/70 (83) 99 Room Air 09/06/21 19:45 100 Room Air 09/06/21 19:12 36.6 73 16 95/54 (68) 99 Room Air 09/06/21 19:05 72 09/06/21 15:22 36.4 78 20 95/62 (73) 100 Room Air 09/06/21 13:40 83 16 99 Room Air 09/06/21 13:35 80 16 96 Room Air 09/06/21 12:43 72 09/06/21 12:00 37.2 79 20 129/68 (88) 97 Room Air 09/06/21 09:25 97 Room Air 0.00 I & O 09/07/21 07:00 Intake Total 1500 ml Balance 1500 ml Capillary Refill : Less Than 3 Seconds General Appearance: No Apparent Distress, WD/WN, Chronically ill, Thin HEENT: PERRL/EOMI; No Photophobia Neck: Full Range of Motion, Non Tender Respiratory: Lungs Clear, Normal Breath Sounds, No Accessory Muscle Use, No Respiratory Distress Cardiovascular: Regular Rate, Rhythm, JVD Gastrointestinal: non tender, soft, no organomegaly Extremity: Non Tender, No Calf Tenderness, No Pedal Edema Neurologic/Psychiatric: Alert, Oriented x3, No Motor/Sensory Deficits, Normal Mood/Affect Skin: Normal Color, Warm/Dry Lymphatic: No Adenopathy Results Lab Laboratory Tests 09/07/21 04:55: White Blood Count 5.5, Red Blood Count 3.56L, Hemoglobin 9.6L, Hematocrit 30L, Mean Corpuscular Volume 85, Mean Corpuscular Hemoglobin 27, Mean Corpuscular Hemoglobin Concent 32, Red Cell Distribution Width 16.1H, Platelet Count 255, Mean Platelet Volume 9.8, Immature Granulocyte % (Auto) 0, Neutrophils (%) ( Auto) 67, Lymphocytes (%) (Auto) 18, Monocytes (%) (Auto) 10, Eosinophils (%) (Auto) 4, Basophils (%) (Auto) 1, Neutrophils # (Auto) 3.7, Lymphocytes # (Auto) 1.0, Monocytes # (Auto) 0.5, Eosinophils # (Auto) 0.2, Basophils # (Auto) 0.1, Immature Granulocyte # (Auto) 0.0, Sodium Level 137, Potassium Level 2.9L, Chloride Level 108H, Carbon Dioxide Level 18L, Anion Gap 11, Blood Urea Nitrogen 5L, Creatinine 0.61, Estimat Glomerular Filtration Rate 99, BUN/Creatinine Ratio 8, Glucose Level 93, Calcium Level 8.2L, Corrected Calcium 9.0, Total Bilirubin 0.7, Aspartate Amino Transf (AST/SGOT) 19, Alanine Aminotransferase (ALT/SGPT) 10, Alkaline Phosphatase 55, Total Protein 6.1L, Albumin 3.0L Microbiology 09/05/21 MRSA Screen - Final, Complete MRSA not isolated Assessment/Plan Assessment/Plan Assessment/Plan Anemia clear liquid diet, NPO after midnight with bowel prep for repeat Colonoscopy planned for tomorrow, consent with discussion of the procedures, including risks and complications not limited to pain, bleeding, infection, scar and even intestinal perforation. Transfusion of three units of blood each 270ml on 09/05, repeat CBC, continue IV fluids, stop Aspirin and hold Plavix PAD Fatigue HTN - Monitor Blood pressure Clinical Quality Measures DVT/VTE Risk/Contraindication: Contraindications-Pharm: Other *list below* Other: CJ Howe DO 09/07/21 1329: Subjective Subjective/Events-last exam Tolerating clears. No blood in stools. No abdominal pain. Denies n/v fever sweats chills shortness of breath or chest pain. Patient hgb 9.6. Objective Exam General Appearance: No Apparent Distress, WD/WN, Chronically ill, Thin HEENT: PERRL/EOMI, Normal ENT Inspection Neck: Normal Inspection, Non Tender Respiratory: Chest Non Tender, No Accessory Muscle Use, No Respiratory Distress Cardiovascular: Regular Rate, Rhythm, JVD Gastrointestinal: non tender, soft, no organomegaly Extremity: Non Tender, No Calf Tenderness Neurologic/Psychiatric: Alert, Oriented x3 Skin: Normal Color, Warm/Dry Lymphatic: No Adenopathy Assessment/Plan Assessment/Plan Assessment/Plan [place] PAD Fatigue HTN Duodenal ulcers, hiatal hernia Patient had attempted colonosocpy with poor prep. Planning on prepping today and will have colonoscopy tomorrow. On Protonix and Iron Discussed smoking cessation npo after midnight Supervisory-Addendum Brief Verification & Attestation Participated in pt care: history, MDM, physical Personally performed: exam, history, MDM, supervision of care Care discussed with: Medical Student Procedures: n/a Results interpretation: Verified all documentation Verification and Attestation of Medical Student E/M Service A medical student performed and documented this service in my presence. I reviewed and verified all information documented by the medical student and made modifications to such information, when appropriate. I personally performed the physical exam and medical decision making. Cj Foster, Sep 07, 2021,13:28 ÓSCAR DILL Sep 07, 2021 08:52 CJ FOSTER DO Sep 07, 2021 13:29
[2021-09-07] MEDS: LACTATED RINGERS 1,000 ML IV SCH ×2 (09:05→20:45)
[2021-09-07] MEDS: NICOTINE 21 MG (NICODERM) PATCH TD SCH (09:05)
[2021-09-07 11:21] VITALS: BP 112/69
--- NOTE | 2021-09-07 11:30 | Anesthesia-General Post-Op ---
MAC Patient Condition Mental Status/LOC: Same as Preop Cardiovascular: Satisfactory Nausea/Vomiting: Absent Respiratory: Satisfactory Pain: Controlled Complications: Absent Post Op Complications Complications None Follow Up Care/Instructions Patient Instructions None needed. Anesthesiology Discharge Order Discharge Order Patient is doing well, no complaints, stable vital signs, no apparent adverse anesthesia problems. No complications reported per nursing. JENNY JOHNSTON CRNA Sep 07, 2021 11:30
[2021-09-07 15:58] VITALS: BP 120/61
[2021-09-07] MEDS ORDERED: MAGNESIUM CITRATE 300 ML BTL PO SCH (16:00)
[2021-09-07 20:35] VITALS: BP 116/74
[2021-09-08 00:16] VITALS: BP 122/83
[2021-09-08 03:59] VITALS: BP 150/90
[2021-09-08 06:16] LABS: BASOPHILS % (AUTO) 1 % (0-10); EOSINOPHILS # (AUTO) 0.3 10^3/uL (0.0-0.3); EOSINOPHILS % (AUTO) 6 % (0-10); HEMATOCRIT 31 % (35-52); HEMOGLOBIN 9.6 g/dL (11.5-16.0); LYMPHOCYTES # (AUTO) 0.9 10^3/uL (1.0-4.0); LYMPHOCYTES % (AUTO) 18 % (12-44); MEAN CORPUSCULAR HEMOGLOBIN 27 pg (25-34); MEAN CORPUSCULAR HGB CONC 32 g/dL (32-36); MEAN CORPUSCULAR VOLUME 87 fL (80-99); MEAN PLATELET VOLUME 10.6 fL (9.0-12.2); MONOCYTES # (AUTO) 0.6 10^3/uL (0.0-1.0); MONOCYTES % (AUTO) 11 % (0-12); NEUTROPHILS # (AUTO) 3.1 10^3/uL (1.8-7.8); NEUTROPHILS % (AUTO) 63 % (42-75); PLATELET COUNT 260 10^3/uL (130-400); WHITE BLOOD COUNT 4.8 10^3/uL (4.3-11.0)
[2021-09-08 06:25] LABS: ALBUMIN 2.8 GM/DL (3.2-4.5); POTASSIUM 3.7 MMOL/L (3.6-5.0)
[2021-09-08 06:27] LABS: CALCIUM 8.2 MG/DL (8.5-10.1)
[2021-09-08 06:28] LABS: TOTAL PROTEIN 5.8 GM/DL (6.4-8.2)
[2021-09-08 06:29] LABS: BILIRUBIN,TOTAL 0.5 MG/DL (0.1-1.0)
[2021-09-08 06:31] LABS: CREATININE SERUM 0.66 MG/DL (0.60-1.30)
--- NOTE | 2021-09-08 07:26 | Progress Note - Surgery ---
ÓSCAR DILL 09/08/21 0726: Subjective Date Seen by a Provider: Sep 08, 2021 Time Seen by a Provider: 07:00 Subjective/Events-last exam Pt reports that her bowel movements are clear. Denies blood in stool, urine, or coughing blood, and denies melena, epigastric pain. Review of Systems General: No Chills; Other (no fever) HEENT: No Eye Pain, No Ear Pain Pulmonary: No Cough, No Pleuritic Chest Pain Cardiovascular: No: Chest Pain, Palpitations Gastrointestinal: Diarrhea (bowel prep); No: Nausea, Vomiting, Abdominal Pain, Constipation, Melena, Hematochezia Genitourinary: No Incontinence, No Hematuria Musculoskeletal: No: neck pain, back pain Neurological: No: Change in speech, Confusion Objective Exam Vital Signs Date Time Temp Pulse Resp B/P (MAP) Pulse Ox O2 Delivery O2 Flow Rate FiO2 09/08/21 03:59 37.2 76 17 150/90 (110) 97 Room Air 09/08/21 01:00 61 09/08/21 00:16 37.0 77 18 122/83 (96) 98 Room Air 09/07/21 20:35 37.4 77 19 116/74 (88) 97 Room Air 09/07/21 20:00 98 Room Air 09/07/21 19:00 61 09/07/21 15:58 37.2 68 19 120/61 (80) 97 Room Air 09/07/21 13:00 76 09/07/21 11:21 37.0 64 16 112/69 (83) 98 Room Air 09/07/21 08:17 100 Room Air 0.00 09/07/21 08:00 Room Air 09/07/21 07:47 36.7 61 18 114/66 (82) 100 Room Air I & O 09/08/21 07:00 Intake Total 3530 ml Output Total 1375 ml Balance 2155 ml Capillary Refill : Less Than 3 Seconds General Appearance: No Apparent Distress, WD/WN, Chronically ill, Thin HEENT: PERRL/EOMI; No Photophobia Neck: Full Range of Motion, Non Tender Respiratory: Lungs Clear, Normal Breath Sounds, No Accessory Muscle Use, No Respiratory Distress Cardiovascular: Regular Rate, Rhythm, JVD Gastrointestinal: non tender, soft, no organomegaly Extremity: Non Tender, No Calf Tenderness Neurologic/Psychiatric: Alert, Oriented x3, No Motor/Sensory Deficits, Normal Mood/Affect Skin: Normal Color, Warm/Dry Results Lab Laboratory Tests 09/08/21 05:29: White Blood Count 4.8, Red Blood Count 3.51L, Hemoglobin 9.6L, Hematocrit 31L, Mean Corpuscular Volume 87, Mean Corpuscular Hemoglobin 27, Mean Corpuscular Hemoglobin Concent 32, Red Cell Distribution Width 17.2H, Platelet Count 260, Mean Platelet Volume 10.6, Immature Granulocyte % (Auto) 0, Neutrophils (%) (Auto) 63, Lymphocytes (%) (Auto) 18, Monocytes (%) (Auto) 11, Eosinophils (%) (Auto) 6, Basophils (%) (Auto) 1, Neutrophils # (Auto) 3.1, Lymphocytes # (Auto) 0.9L, Monocytes # (Auto) 0.6, Eosinophils # (Auto) 0.3, Basophils # (Auto) 0.0, Immature Granulocyte # (Auto) 0.0, Sodium Level 139, Potassium Level 3.7, Chlori de Level 111H, Carbon Dioxide Level 19L, Anion Gap 9, Blood Urea Nitrogen 4L, Creatinine 0.66, Estimat Glomerular Filtration Rate 97, BUN/Creatinine Ratio 6, Glucose Level 80, Calcium Level 8.2L, Corrected Calcium 9.2, Total Bilirubin 0.5, Aspartate Amino Transf (AST/SGOT) 24, Alanine Aminotransferase (ALT/SGPT) 12, Alkaline Phosphatase 53, Total Protein 5.8L, Albumin 2.8L Microbiology 09/05/21 MRSA Screen - Final, Complete MRSA not isolated Assessment/Plan Assessment/Plan Assessment/Plan [place] -09/05: Transfused 3 units of blood, consent for EDG and colonoscopy -09/06: EGD showed Duodenal ulcers, started on Protonix and Iron for low levels, Poor prep will re-attempt colonoscopy on 09/08 with consent given. Continue clear liquid diet, bowel prep, and NPO after midnight on Wednesday. -09/08: Colonoscopy today PAD HTN - Monitor BP Clinical Quality Measures DVT/VTE Risk/Contraindication: Contraindications-Pharm: Other *list below* Other: PARTH Lopez DO 09/08/21 1101: Subjective Time Seen by a Provider: 10:56 Subjective/Events-last exam Pt seen and examined, no complaints today and no changes. Review of Systems General: No Chills; Other (no fever) Pulmonary: No Cough Cardiovascular: No: Chest Pain, Palpitations Gastrointestinal: Diarrhea (bowel prep); No: Nausea, Vomiting, Abdominal Pain, Melena, Hematochezia Objective Exam General Appearance: No Apparent Distress, Thin HEENT: PERRL/EOMI Respiratory: Lungs Clear, Normal Breath Sounds, No Accessory Muscle Use, No Respiratory Distress Cardiovascular: Regular Rate, Rhythm, No Murmur Gastrointestinal: normal bowel sounds, non tender, soft, no organomegaly Neurologic/Psychiatric: Alert, Oriented x3 Assessment/Plan Assessment/Plan Assessment/Plan [place] -09/05: Transfused 3 units of blood, consent for EDG and colonoscopy -09/06: EGD showed Duodenal ulcers, started on Protonix and Iron for low levels, Poor prep will re-attempt colonoscopy on 09/08 with consent given. Continue clear liquid diet, bowel prep, and NPO after midnight on Wednesday. -09/08: Colonoscopy today PAD HTN - Monitor BP Supervisory-Addendum Brief Verification & Attestation Participated in pt care: history, MDM, physical Personally performed: exam, history, MDM, supervision of care Care discussed with: Medical Student Procedures: n/a Verification and Attestation of Medical Student E/M Service A medical student performed and documented this service. I then reviewed and verified all information documented by the medical student and made modifications to such information, when appropriate. I personally performed a physical exam, medical decision making and then discussed any differences between the notes and made revisions as necessary to create one note. Parth Rojas , 09/08/21 , 11:01 ÓSCAR DILL Sep 08, 2021 07:26 PARTH ROJAS DO Sep 08, 2021 11:01
[2021-09-08] MEDS: NICOTINE PATCH REMOVAL TP SCH (07:28)
[2021-09-08] MEDS: NICOTINE 21 MG (NICODERM) PATCH TD SCH (07:28)
[2021-09-08] MEDS: LACTATED RINGERS 1,000 ML IV SCH ×2 (07:28→08:37)
[2021-09-08 07:49] VITALS: BP 153/75
[2021-09-08] MEDS: SENNOSIDES 8.6 MG (SENOKOT) TAB PO SCH (08:32)
[2021-09-08] MEDS: DOCUSATE SODIUM 100 MG (COLACE) CAP PO SCH (08:32)
[2021-09-08] MEDS: PANTOPRAZOLE 40 MG (PROTONIX) TAB PO SCH (08:32)
[2021-09-08] MEDS: KCL 20 MEQ TAB (K-DUR) PO SCH (08:33)
[2021-09-08] MEDS ORDERED: LACTATED RINGERS 1,000 ML IV ONE (10:56)
[2021-09-08] MEDS ORDERED: PROPOFOL INJECTION 50 ML IV ONE (11:23)
[2021-09-08 12:10] VITALS: BP 83/53
--- NOTE | 2021-09-08 12:14 | Progress Note-Post Operative ---
Post-Operative Progess Note Surgeon (s)/Naphthalene Operator Helper (s) Surgeon TONO FERREIRA DO Naphthalene Operator Helper: Dada Vega, ALEAII Pre-Operative Diagnosis anemia Post-Operative Diagnosis Polyps diverticula internal Procedure & Operative Findings Date of Procedure 09/08/21 Procedure Performed/Findings Colonoscopy with snare Colonoscopy with hot bx PROCEDURE NOTE: After informed consent was obtained, the patient was brought to the endoscopy suite, placed in bed in left lateral decubitus position. She was administered IV sedation by the CONSUMER STUDIES PROFESSOR who then monitored her vitals the entire time, heart rate, blood pressure and pulse ox and the scope was inserted, pushed all the way to about [address] in, in the transverse colon found a large flat polyp and elected to remove it with snare polypectomy. Also in this area noted some diverticula and took a picture of them. Pushed into the cecum, took a picture of appendiceal orifice and noted the ileo-cecal valve. Then slowly withdrew the scope insufflating to look circumferentially at the ray starting in the cecum and up the ascending colon. In the ascendin colon noted a large mass, but it looked like a lipoma and elected to do a hot biopsy of it to send to pathology. Continued up to the hepatic flexure, then down the transverse colon to the splenic flexure and into the descending colon down. Finally down into the sigmoid where I found another polyp and elected to remove it with a hot biopsy, then into the rectal vault and retroflexed the scope. Took picture of the internal hemorrhoids; she may have had more small polyps in the rectum. The patient tolerated the procedure. She was recovered in endoscopy suite. Anesthesia Type IV sedation by CONSUMER STUDIES PROFESSOR Estimated Blood Loss Estimated blood loss (mL): scant Specimens/Packing Specimens Removed transvere colon polyp asc colon bx sigmoid polyp TONO FERREIRA DO Sep 08, 2021 12:14
[2021-09-08 12:15] VITALS: BP 122/58
--- NOTE | 2021-09-08 12:15 | Endoscopy Discharge Instruct ---
Endo Procedure/Findings Findings 1.: Duodenal Ulcer 2.: Hiatal Hernia, Gastritis 3.: Polyp 4.: Diverticulosis, Internal Hemorrhoids Discharge Instructions - Activity: You might feel a little sleepy until tomorrow. This is due to the medicine you received to relax you. Until tomorrow, you should: NOT drive a car, operate machinery or power tools. NOT drink any alcoholic beverages. NOT make any important decisions or sign importortant papers. Do not return to work until tomorrow, unless otherwise instructed. Resume previous activities tomorrow. Diet: Start by taking liquids. If you tolerate liquids, advance to solid food. 1.: EGD in 6-8 weeks 2.: Colonscopy in 3 years Notify Physician - If you experience excessive bleeding, unusual abdominal pain, fever, or chest pain, contact your doctor immediately. Follow-Up: Reconcile Patient Problems Problems: (1) Anemia Qualifiers: Qualified Codes: D64.9 - Anemia, unspecified TONO FERREIRA DO Sep 08, 2021 12:15
--- NOTE | 2021-09-08 12:18 | Anesthesia-General Post-Op ---
MAC Patient Condition Mental Status/LOC: Same as Preop Cardiovascular: Satisfactory Nausea/Vomiting: Absent Respiratory: Satisfactory Pain: Controlled Complications: Absent Post Op Complications Complications None Follow Up Care/Instructions Patient Instructions None needed. Anesthesiology Discharge Order Discharge Order Patient is doing well, no complaints, stable vital signs, no apparent adverse anesthesia problems. No complications reported per nursing. ZORAIDA KWAN CRNA Sep 08, 2021 12:18
[2021-09-08 12:38] VITALS: BP 113/73
[2021-09-08] MEDS ORDERED: PANT40TA52 PO (13:10)
== END 2021-09-08 14:35 | disposition home or self-care (01) ==
LOC: EDUNIT# 09:27 → ER 09:29 → 4TH 12:23
PROVIDERS: ADMIT Internal Medicine; ATTEND Internal Medicine
DX: D64.9 Anemia, unspecified (principal); K51.40 Inflammatory polyps of colon without complications; D12.2 Benign neoplasm of ascending colon; K63.5 Polyp of colon; K29.50 Unspecified chronic gastritis without bleeding; K22.10 Ulcer of esophagus without bleeding; K64.8 Other hemorrhoids; K57.30 Diverticulosis of large intestine without perforation or abscess without bleeding; E78.5 Hyperlipidemia, unspecified; I73.9 Peripheral vascular disease, unspecified; J44.9 Chronic obstructive pulmonary disease, unspecified; I10 Essential (primary) hypertension; F17.210 Nicotine dependence, cigarettes, uncomplicated; Z79.02 Long term (current) use of antithrombotics/antiplatelets; Z79.82 Long term (current) use of aspirin; Z79.899 Other long term (current) drug therapy; Z80.9 Family history of malignant neoplasm, unspecified
CPT/HCPCS: 36430; 43239; 45384; 45385; 80053 ×4; 82607; 82728; 82746; 83540; 83550; 84484; 85025 ×4; 85045; 85610; 86850; 86900; 86901; 86920; 87081; 87636; 93005; 94760 ×2; 99284; G0378; P9016; 36415

== ENCOUNTER → 2021-09-15 | Outpatient (CLI) | payer MEDICARE ==
[~2021-09-15] MED LIST changes: +ATOR40TA70 PO; +CLOP75TA28 PO; +DOCU-26 PO; +HYDR-700 PO; +IBUP-2473 PO; +PANT40TA52 PO
== END ==
LOC: WOUNDCARE 14:50
PROVIDERS: ATTEND Family Medicine
DX: I70.262 Atherosclerosis of native arteries of extremities with gangrene, left leg (principal); L89.620 Pressure ulcer of left heel, unstageable; E43 Unspecified severe protein-calorie malnutrition; T65.222A Toxic effect of tobacco cigarettes, intentional self-harm, initial encounter; F17.218 Nicotine dependence, cigarettes, with other nicotine-induced disorders; L97.313 Non-pressure chronic ulcer of right ankle with necrosis of muscle
CPT/HCPCS: 99213

== ENCOUNTER → 2021-09-29 | Outpatient (CLI) | payer MEDICARE | LOC: WOUNDCARE 15:00 | PROVIDERS: ATTEND Family Medicine | DX: L89.620 Pressure ulcer of left heel, unstageable (principal); E43 Unspecified severe protein-calorie malnutrition; T65.222A Toxic effect of tobacco cigarettes, intentional self-harm, initial encounter; I70.244 Atherosclerosis of native arteries of left leg with ulceration of heel and midfoot; L97.313 Non-pressure chronic ulcer of right ankle with necrosis of muscle; I96 Gangrene, not elsewhere classified; F17.218 Nicotine dependence, cigarettes, with other nicotine-induced disorders | CPT/HCPCS: 99213 ==

== ENCOUNTER → 2021-10-13 | Outpatient (CLI) | payer MEDICARE, MEDICAID | LOC: WOUNDCARE 15:06 | PROVIDERS: ATTEND Family Medicine | DX: L89.620 Pressure ulcer of left heel, unstageable (principal); E43 Unspecified severe protein-calorie malnutrition; T65.222A Toxic effect of tobacco cigarettes, intentional self-harm, initial encounter; I70.234 Atherosclerosis of native arteries of right leg with ulceration of heel and midfoot; L97.313 Non-pressure chronic ulcer of right ankle with necrosis of muscle; I96 Gangrene, not elsewhere classified; F17.218 Nicotine dependence, cigarettes, with other nicotine-induced disorders | CPT/HCPCS: 99212 ==

== ENCOUNTER → 2021-10-16 | Outpatient (CLI) | payer MEDICARE, MEDICAID | LOC: WOUNDCARE 14:20 | PROVIDERS: ATTEND Family Medicine | DX: L89.620 Pressure ulcer of left heel, unstageable (principal); E43 Unspecified severe protein-calorie malnutrition; T65.222A Toxic effect of tobacco cigarettes, intentional self-harm, initial encounter; I70.244 Atherosclerosis of native arteries of left leg with ulceration of heel and midfoot; L97.313 Non-pressure chronic ulcer of right ankle with necrosis of muscle; I96 Gangrene, not elsewhere classified; F17.218 Nicotine dependence, cigarettes, with other nicotine-induced disorders | CPT/HCPCS: 99212 ==

== ENCOUNTER → 2021-10-22 | Outpatient (CLI) | payer MEDICARE, MEDICAID ==
[~2021-10-22] MED LIST changes: +CATHETER FLUSH 10 ML SYR IV PRN; +HOLD METFORMIN - RECEIVED CONTRAST 20 ML VIAL IV SCH; +IOHEXOL 350 MG/ML 100 ML (OMNIPAQUE 350) VIAL IV ONE; +NS 100 ML (IVPB) BAG IV ONE
--- NOTE | 2021-10-22 16:28 | Diagnostic Imaging Report ---
PROCEDURE: CT right lower extremity with contrast. TECHNIQUE: Multiple contiguous axial CT images of the right extremity were obtained after intravenous administration of iodinated contrast. Auto Exposure Controls were utilized during the CT exam to meet ALARA standards for radiation dose reduction. INDICATION: Open wound at the anterior ankle. Evaluate for infection. COMPARISON: CT from 07/03/2021. FINDINGS: There is internal fixation of the distal fibula with a medial plate and multiple screws as well as additional screws and pins. Bones overall appear osteopenic. Hardware artifact and low bone density result in suboptimal evaluation on CT. There is bony bridging of the imaged portions of the distal tibia and fibula across the syndesmosis. No acute fracture is seen. No loosening is seen about the hardware. No definite cortical erosion or periosteal reaction is seen to indicate osteomyelitis by CT. There are advanced degenerative changes at the tibiotalar joint. No ankle joint effusion is seen. There is edema in the soft tissues anteriorly. There does appear to be a skin defect anteriorly measuring at least 2 cm transverse. This appears to expose the anterior tibialis. No rim-enhancing fluid collections are appreciated. There is marked calcification of the flexor hallucis longus tendon just above the ankle, likely from remote trauma. IMPRESSION: 1. Internal fixation of the distal right tibia and syndesmosis with bony bridging across the distal tibiofibular syndesmosis. 2. No CT findings of osteomyelitis. 3. Anterior ulceration. The posterior tibial tendon appears to be exposed. No rim-enhancing fluid collection is seen. Dictated by: Dictated on workstation # [id number]
--- NOTE | 2021-10-22 16:58 | Diagnostic Imaging Report ---
INDICATION: Right leg pain, history of bypass. TECHNIQUE: The right leg arterial Doppler study was performed in the routine fashion with color flow Doppler and waveform analysis. FINDINGS: Flow is monophasic throughout the [place] vessels of the right lower extremity, the monophasic nature of flow implies the presence of a lesion proximal to the imaged levels. No focal high velocity jet was seen in the lower extremities. There is a bypass from the common femoral artery to the popliteal artery. This bypass is patent but also shows monophasic flow throughout. IMPRESSION: Monophasic flow is seen throughout the right lower extremity as well as in the patient's femoral to popliteal bypass. This does raise the possibility of a lesion proximal to the imaged levels. CT angiography of the abdomen and pelvis may be helpful as clinically warranted. Dictated by: Dictated on workstation # [id number]
== END ==
LOC: RAD 12:15
PROVIDERS: ATTEND Family Medicine
DX: L97.313 Non-pressure chronic ulcer of right ankle with necrosis of muscle (principal)
CPT/HCPCS: 73701; 93926

== ENCOUNTER → 2021-10-27 | Outpatient (CLI) | payer MEDICARE, MEDICAID ==
[~2021-10-27] MED LIST changes: -CATHETER FLUSH 10 ML SYR IV PRN; -HOLD METFORMIN - RECEIVED CONTRAST 20 ML VIAL IV SCH; -IOHEXOL 350 MG/ML 100 ML (OMNIPAQUE 350) VIAL IV ONE; -NS 100 ML (IVPB) BAG IV ONE
== END ==
LOC: WOUNDCARE 15:14
PROVIDERS: ATTEND Family Medicine
DX: L89.620 Pressure ulcer of left heel, unstageable (principal); E43 Unspecified severe protein-calorie malnutrition; T65.222A Toxic effect of tobacco cigarettes, intentional self-harm, initial encounter; F17.218 Nicotine dependence, cigarettes, with other nicotine-induced disorders; I70.244 Atherosclerosis of native arteries of left leg with ulceration of heel and midfoot; L97.313 Non-pressure chronic ulcer of right ankle with necrosis of muscle; I96 Gangrene, not elsewhere classified
CPT/HCPCS: 87070; 87077; 87205; G0463; 99213

== ENCOUNTER 2021-10-29 08:20 | Outpatient (CLI) | payer MEDICARE, MEDICAID ==
[~2021-10-29] VITALS: Ht 157.5 cm; Wt 41.0 kg
[2021-10-29 08:52] LABS: HEMOGLOBIN 6.9 g/dL (11.5-16.0)
[2021-10-29] MEDS ORDERED: NS IV 500 ML 500 ML ONE (08:55)
[2021-10-29 10:00] VITALS: BP 101/64
[2021-10-29 10:15] VITALS: BP 100/75
[2021-10-29 11:40] VITALS: BP 92/49
[2021-10-29 11:51] VITALS: BP 92/49
[2021-10-29 12:06] VITALS: BP 110/45
[2021-10-29 13:45] VITALS: BP 113/80
== END 2021-10-29 14:05 ==
LOC: SDC 08:20
PROVIDERS: ATTEND Nurse Practitioner Family
DX: D64.9 Anemia, unspecified (principal)
CPT/HCPCS: 36430; 85014; 85018; 86850; 86900; 86901; 86920; P9016; 36415

== ENCOUNTER → 2021-11-05 | Outpatient (CLI) | payer MEDICARE, MEDICAID | LOC: LAB 15:13 | PROVIDERS: ATTEND Family Medicine | DX: L89.620 Pressure ulcer of left heel, unstageable (principal) | CPT/HCPCS: 36415; 82306; 82607; 82746; 84134 ==

== ENCOUNTER → 2021-11-05 | Outpatient (CLI) | payer MEDICARE, MEDICAID | LOC: WOUNDCARE 14:31 | PROVIDERS: ATTEND Family Medicine | DX: I96 Gangrene, not elsewhere classified (principal); L89.620 Pressure ulcer of left heel, unstageable; E43 Unspecified severe protein-calorie malnutrition; T65.222A Toxic effect of tobacco cigarettes, intentional self-harm, initial encounter; F17.218 Nicotine dependence, cigarettes, with other nicotine-induced disorders; I70.244 Atherosclerosis of native arteries of left leg with ulceration of heel and midfoot; L97.313 Non-pressure chronic ulcer of right ankle with necrosis of muscle; E55.9 Vitamin D deficiency, unspecified | CPT/HCPCS: 99213 ==

== ENCOUNTER → 2021-11-21 | Outpatient (CLI) | payer MEDICARE, MEDICAID | LOC: WOUNDCARE 11:06 | PROVIDERS: ATTEND Family Medicine | DX: E43 Unspecified severe protein-calorie malnutrition (principal); T65.222A Toxic effect of tobacco cigarettes, intentional self-harm, initial encounter; I70.244 Atherosclerosis of native arteries of left leg with ulceration of heel and midfoot; L97.313 Non-pressure chronic ulcer of right ankle with necrosis of muscle; E55.9 Vitamin D deficiency, unspecified; L89.623 Pressure ulcer of left heel, stage 3; I96 Gangrene, not elsewhere classified; F17.218 Nicotine dependence, cigarettes, with other nicotine-induced disorders | CPT/HCPCS: 11042; 87070; 87077; 87186; 87205; A6212; G0463 ==

== ENCOUNTER → 2021-11-27 | Outpatient (CLI) | payer MEDICARE, MEDICAID | LOC: WOUNDCARE 13:53 | PROVIDERS: ATTEND Family Medicine | DX: L89.623 Pressure ulcer of left heel, stage 3 (principal); F17.218 Nicotine dependence, cigarettes, with other nicotine-induced disorders; I70.244 Atherosclerosis of native arteries of left leg with ulceration of heel and midfoot; L97.313 Non-pressure chronic ulcer of right ankle with necrosis of muscle; E55.9 Vitamin D deficiency, unspecified; T65.222A Toxic effect of tobacco cigarettes, intentional self-harm, initial encounter; E44.1 Mild protein-calorie malnutrition; I96 Gangrene, not elsewhere classified | CPT/HCPCS: 11042; G0463 ==

== ENCOUNTER → 2021-12-03 | Outpatient (CLI) | payer MEDICARE, MEDICAID | LOC: WOUNDCARE 14:25 | PROVIDERS: ATTEND Family Medicine | DX: E43 Unspecified severe protein-calorie malnutrition (principal); L89.623 Pressure ulcer of left heel, stage 3; T65.222A Toxic effect of tobacco cigarettes, intentional self-harm, initial encounter; F17.218 Nicotine dependence, cigarettes, with other nicotine-induced disorders; I70.244 Atherosclerosis of native arteries of left leg with ulceration of heel and midfoot; L97.313 Non-pressure chronic ulcer of right ankle with necrosis of muscle; E55.9 Vitamin D deficiency, unspecified; I96 Gangrene, not elsewhere classified | CPT/HCPCS: 11042; A6212; G0463 ==

== ENCOUNTER → 2021-12-10 | Outpatient (CLI) | payer MEDICARE, MEDICAID | LOC: WOUNDCARE 13:02 | PROVIDERS: ATTEND Family Medicine | DX: E43 Unspecified severe protein-calorie malnutrition (principal); T65.222A Toxic effect of tobacco cigarettes, intentional self-harm, initial encounter; I70.244 Atherosclerosis of native arteries of left leg with ulceration of heel and midfoot; L97.313 Non-pressure chronic ulcer of right ankle with necrosis of muscle; E55.9 Vitamin D deficiency, unspecified; L89.623 Pressure ulcer of left heel, stage 3; F17.218 Nicotine dependence, cigarettes, with other nicotine-induced disorders; I96 Gangrene, not elsewhere classified | CPT/HCPCS: 11042; G0463 ==

== ENCOUNTER → 2021-12-24 | Outpatient (CLI) | payer MEDICARE, MEDICAID | LOC: WOUNDCARE 12:59 | PROVIDERS: ATTEND Family Medicine | DX: L89.623 Pressure ulcer of left heel, stage 3 (principal); I70.244 Atherosclerosis of native arteries of left leg with ulceration of heel and midfoot; L97.313 Non-pressure chronic ulcer of right ankle with necrosis of muscle; E44.1 Mild protein-calorie malnutrition; T65.222A Toxic effect of tobacco cigarettes, intentional self-harm, initial encounter; F17.218 Nicotine dependence, cigarettes, with other nicotine-induced disorders; E55.9 Vitamin D deficiency, unspecified; I96 Gangrene, not elsewhere classified | CPT/HCPCS: 11042; A6212; G0463 ==

== ENCOUNTER → 2022-01-08 | Outpatient (CLI) | payer MEDICARE, MEDICAID | LOC: WOUNDCARE 13:55 | PROVIDERS: ATTEND Family Medicine | DX: E43 Unspecified severe protein-calorie malnutrition (principal); T65.222A Toxic effect of tobacco cigarettes, intentional self-harm, initial encounter; I70.244 Atherosclerosis of native arteries of left leg with ulceration of heel and midfoot; L97.313 Non-pressure chronic ulcer of right ankle with necrosis of muscle; E55.9 Vitamin D deficiency, unspecified; L89.623 Pressure ulcer of left heel, stage 3; F17.218 Nicotine dependence, cigarettes, with other nicotine-induced disorders | CPT/HCPCS: 99212 ==

== ENCOUNTER 2022-04-08 06:28 | Outpatient (CLI) | payer MEDICARE, MEDICAID ==
[~2022-04-08] VITALS: Ht 399.8 cm; Wt 41.7 kg
[2022-04-08] MEDS ORDERED: CEPH500T PO (10:50)
[2022-04-08] MEDS ORDERED: ACHD5005 PO (10:50)
[2022-04-08] MEDS ORDERED: MECO10005 PO (12:49)
[2022-04-08] MEDS ORDERED: FERR-84 PO (12:49)
[2022-04-08] MEDS ORDERED: NF-VITD400 PO (12:49)
== END 2022-04-08 12:52 | disposition home or self-care (01) ==
LOC: PREOP 06:28
PROVIDERS: ATTEND Surgery
DX: Z01.818 Encounter for other preprocedural examination (principal)

== ENCOUNTER 2022-04-08 10:14 | Emergency (ER) | payer MEDICARE, MEDICAID ==
[~2022-04-08] VITALS: Ht 157.5 cm; Wt 39.5 kg
--- NOTE | 2022-04-08 10:43 | ED Lower Extremity ---
General Chief Complaint: Lower Extremity Stated Complaint: RIGHT LEG PAIN Nursing Triage Note: PT TO RM 7 BY WC WITH COMPLAINT OF REDNESS, SWELLING, AND COLD RIGHT FOOT. PT HAS HX OF CIRCULATION REPAIR IN BOTH LOWER EXTREMITIES. HAS A SKIN GRAFT ON RIGHT ANKLE/FOOT. History of Present Illness Date Seen by Provider: Apr 08, 2022 Time Seen by Provider: 10:20 Initial Comments Patient to the ER by private conveyance from home with chief complaint of 2 days of progressively worsening pain, 15 out of 10 in her right lower foot feeling cool to the touch yesterday warm today. History of peripheral arterial disease followed by Dr. Aragon status post multiple interventions. Skin graft on the anterior right tibia which is chronic and still open dressed with gauze. No fevers chills nausea vomiting or diarrhea. Still smokes cigarettes. No history of diabetes. No purulence or drainage from the wound unusual. Allergies and Home Medications Allergies Coded Allergies: Sulfa (Sulfonamide Antibiotics) (Verified Allergy, Unknown, 06/20/18) Patient Home Medication List Home Medication List Reviewed: Yes Aspirin (Aspirin) 325 Mg Tablet, 325 MG PO 1800, (Reported) Entered as Reported by: ERNST CASTILLO on 04/02/21 0815 Atorvastatin Calcium (Atorvastatin Calcium) 40 Mg Tablet, 40 MG PO 1800, (Reported) Entered as Reported by: WILLI TRIVEDI on 09/05/21 1437 Clopidogrel Bisulfate (Clopidogrel) 75 Mg Tablet, 75 MG PO 1200, (Reported) Entered as Reported by: WILLI TRIVEDI on 09/05/21 1437 Docusate Sodium (Stool Softener) 100 Mg Capsule, 100 MG PO BID, (Reported) Entered as Reported by: WILLI TRIVEDI on 09/05/21 1437 Hydroxyzine HCl (Hydroxyzine HCl) 25 Mg Tablet, 25 MG PO HS PRN for ITCHING, (Reported) Entered as Reported by: WILLI TRIVEDI on 09/05/21 1437 Pantoprazole Sodium (Pantoprazole Sodium) 40 Mg Tablet., 40 MG PO BID Prescribed by: ASHLEE YEBOAH on 09/08/21 1310 Review of Systems Constitutional: No chills, No diaphoresis EENTM: No ear discharge, No ear pain Respiratory: No cough, No phlegm Cardiovascular: No chest pain, No palpitations Gastrointestinal: No abdominal pain, No nausea, No vomiting Genitourinary: No discharge, No dysuria Musculoskeletal: No back pain, No joint pain All Other Systems Reviewed Negative Unless Noted: Yes Past Nfermql-Nyajyp-Feuznq Hx Patient Social History Tobacco Use?: Yes Tobacco type used: Cigarettes Use of E-Cig and/or Vaping dev: No Substance use?: No Alcohol Use?: No Pt feels they are or have been: No Immunizations Up To Date Tetanus Booster (TDap): Unknown PED Vaccines UTD: Yes Seasonal Allergies Seasonal Allergies: No Past Medical History Surgeries: Yes Orthopedic, Vascular Surgery Respiratory: No COPD Cardiac: Yes Hypertension, Peripheral Vascular 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 oz. 47.779121yx; 15.00 BMI Method:Stated General Appearance: WD/WN, mild distress HEENT: PERRL/EOMI, normal ENT inspection, TMs normal, pharynx normal Neck: full range of motion, supple, normal inspection Cardiovascular: normal peripheral pulses, regular rate, rhythm Respiratory: no respiratory distress, no accessory muscle use, decreased breath sounds, wheezing (Mild, few) Ankles: right ankle other (There is a healing wound about 6 cm x 3 cm on the anterior distal right huang with no purulence or fluctuance or induration. There is a hyperemic warm surrounding area of soft tissue about 5 or 6 cm above and below the wound consistent with cellulitis. She does have dopplerable dorsal pedal pulse on the right foot. She has capillary refill 3 to 4 seconds.) Progress/Results/Core Measures Results/Orders My Orders Orders - AINSLEY MORRIS Hydrocodone/Apap 5/325 Tablet (Lortab 5 (04/08/22 10:45) Vital Signs/I&O 04/08/22 10:23 Pulse 103 Resp 20 B/P (MAP) 109/83 (92) Pulse Ox 99 O2 Delivery Room Air Blood Pressure Mean: 92 Progress Progress Note : Time: 10:44 Progress Note Discussed the case with Dr. Aragon who agrees that as long she has a good pulse below the wound to treat her with antibiotics and have her follow-up. We will give her a gram of IM Rocephin, 2 tablets of hydrocodone for her pain and a prescription for cephalexin 4 times a day to follow-up later in the week or early next week with primary care. She did have a little tachycardia and some nervousness while we were examining her foot but after he left the room her heart rate went back down to 90. She does not have any fever and otherwise aseptic vital signs. Departure Impression Primary Impression: Cellulitis and abscess of leg Disposition: HOME, SELF-CARE Condition: Stable Departure-Patient Inst. Decision time for Depature: 10:46 Referrals: ANGEL COSBY DO (PCP/Family) Primary Care Physician Patient Instructions: Cellulitis (Skin Infection), Adult (DC) Add. Discharge Instructions: Call your primary care doctor for reexamination later this week or early next week to make sure you are healing well. Keep the wound clean with regular soap and water and dressed. Cephalexin 500 mg 4 times a day with food for the next 10 days to treat the cellulitis. Probiotics twice a day to prevent diarrhea associated with antibiotic use. Return to the ER for high fever above 102.5, intractable vomiting or other worrisome symptoms especially redness traveling up your thigh. Hydrocodone 1 or 2 tablets every 6 hours as needed to remain functional and treat pain. Tylenol 650 mg every 6 hours as needed for pain. Warm compresses can be helpful to relieve pain and encourage blood flow to the cellulitis. All discharge instructions reviewed with patient and/or family. Voiced understanding. Scripts Cephalexin (Cephalexin) 500 Mg Tablet 500 MG PO QID for 10 Days, #40 TAB 0 Refills Prov: AINSLEY MORRIS 04/08/22 Hydrocodone/Acetaminophen (Hydrocodone-Acetamin 5-325 mg) 5 Mg-325 Mg Tablet 1-2 TAB PO Q6H PRN for PAIN-MODERATE (5-7), #20 TAB 0 Refills Prov: AINSLEY MORRIS 04/08/22 Copy Copies To 1: ANGEL COSBY TITUS J Apr 08, 2022 10:43
[2022-04-08] MEDS ORDERED: HYDROcodone/APAP 5 MG/325 MG (LORTAB) TAB PO ONE (10:45)
[2022-04-08] MEDS ORDERED: ACHD5005 PO (10:50)
[2022-04-08] MEDS ORDERED: CEPH500T PO (10:50)
[2022-04-08] MEDS ORDERED: LIDOCAINE 1% INJ 10 ML VIAL ONE (11:12)
[2022-04-08] MEDS ORDERED: cefTRIAXone 1,000 MG VIAL IM ONE (11:15)
[2022-04-08] MEDS ORDERED: LIDOCAINE 1% INJ 20 ML VIAL INJ ONE (11:15)
[2022-04-08 11:38] VITALS: BP 109/83
[2022-04-08] MEDS ORDERED: MECO10005 PO (12:49)
[2022-04-08] MEDS ORDERED: FERR-84 PO (12:49)
[2022-04-08] MEDS ORDERED: NF-VITD400 PO (12:49)
== END 2022-04-08 11:38 | disposition home or self-care (01) ==
LOC: EDUNIT# 10:14 → ER 10:16
DX: L03.115 Cellulitis of right lower limb (principal); L02.415 Cutaneous abscess of right lower limb; F17.210 Nicotine dependence, cigarettes, uncomplicated
CPT/HCPCS: 99284

== ENCOUNTER → 2022-04-10 | Outpatient (CLI) | payer MEDICARE, MEDICAID ==
[~2022-04-10] MED LIST changes: +CEPH500T PO; +FERR-84 PO; +MECO10005 PO; +NF-VITD400 PO
--- NOTE | 2022-04-10 16:20 | Diagnostic Imaging Report ---
Time of study: 04/10/2022 11:44 AM CLINICAL HISTORY: Atherosclerosis. Screening for abdominal aorta. COMPARISON: None. TECHNIQUE: Limited abdominal sonogram was performed to evaluate the abdominal aorta. FINDINGS: The abdominal aorta is normal in course and caliber. Calcified atherosclerotic plaque is seen throughout the abdominal aorta. There is no evidence of aneurysm. The axial dimensions of the abdominal aorta are: Proximal: 1.5 x 2.0 cm. Mid: 1.1 x 1.5 cm. Distal: 0.8 x 1.6 cm. The peak flow velocity in the proximal aorta is 66 cm/sec. The peak flow velocity in the mid aorta is 50 cm/sec The peak flow velocity in the distal segment is 32 cm/sec. No large retroperitoneal masses or fluid collections are seen. IMPRESSION: 1. Calcified aortic atherosclerotic plaque without evidence of stenosis of aneurysm. 2. No large retroperitoneal masses or fluid collections. Dictated by: Dictated on workstation # [id number]
--- NOTE | 2022-04-10 16:29 | Diagnostic Imaging Report ---
PROCEDURE: US Bilateral lower extremity arterial. TECHNIQUE: Multiple real-time grayscale images are obtained through both lower extremity arterial systems with color Doppler imaging and color Doppler spectral analysis. COMPARISON: Right lower extremity Doppler of 10/22/2021. INDICATION: The patient refused to perform left side lower extremity Doppler. The right axillary-femoral bypass graft is completely occluded. No flow was able to be detected within this graft. The [place] common femoral artery is patent with monophasic waveforms and extensive vascular calcification. [place] superficial femoral artery has severe stenosis with a small central lumen of vascular flow detected with monophasic velocities. The right femoral-popliteal graft is occluded in its mid aspect with minimal flow proximally. The [place] popliteal artery is patent at the site of the graft tie-in. Dorsalis pedis artery has minimal blood flow present with velocity of 5 cm/s. IMPRESSION: 1. Right axillary-femoral bypass graft is completely occluded. 2. The right femoral-popliteal bypass graft is completely occluded. 3. [place] superficial femoral artery has severe stenosis with minimal central flow present. 4. The patient refused to have the left lower extremity evaluated. Dictated by: Dictated on workstation # [id number]
== END ==
LOC: RAD 09:38
PROVIDERS: ATTEND Nurse Practitioner
DX: I70.0 Atherosclerosis of aorta (principal); I70.213 Atherosclerosis of native arteries of extremities with intermittent claudication, bilateral legs
CPT/HCPCS: 76775; 93925

== ENCOUNTER 2022-04-20 10:49 | Day surgery (SDC) | payer MEDICARE, MEDICAID ==
[~2022-04-20] VITALS: Ht 157.5 cm; Wt 41.7 kg
[2022-04-20] MEDS ORDERED: LACTATED RINGERS 1,000 ML IV STA (10:51)
[2022-04-20] MEDS ORDERED: HURRICAINE EXT TUBE (BENZOCAINE) XX PRN (11:00)
[2022-04-20 11:05] VITALS: BP 109/85
--- NOTE | 2022-04-20 11:22 | Progress Note-Pre Operative ---
Pre-Operative Progress Note Date of Available H&P: Mar 31, 2022 Date H&P Reviewed: Apr 20, 2022 Time H&P Reviewed: 11:20 History & Physical: H&P Reviewed, Patient Examed, No changes noted Pre-Operative Diagnosis: Erosive esophagitis TONO FERREIRA DO Apr 20, 2022 11:22
[2022-04-20] MEDS ORDERED: PROPOFOL INJECTION 50 ML IV ONE (12:18)
--- NOTE | 2022-04-20 12:34 | Progress Note-Post Operative ---
Post-Operative Progess Note Surgeon (s)/Trimming Operator (s) Surgeon TONO FERREIRA DO Trimming Operator: none Pre-Operative Diagnosis Erosive esophagitis Post-Operative Diagnosis Gastritis Hiatal hernia Procedure & Operative Findings Date of Procedure 04/20/22 Procedure Performed/Findings EGD with biopsy PROCEDURE NOTE: After informed consent was obtained, the patient was brought to the endoscopy suite, placed in bed in left lateral decubitus position. She was administered IV sedation by the DRUG SAFETY COORDINATOR who then monitored vitals the entire time, heart rate, blood pressure and pulse ox and the scope was inserted down the mouth through the esophagus into the stomach. On the way down, noted some mild esophagitis at GE jxn, took a picture, pushed into the stomach, pushed past the antrum into the duodenum. Duodenum looked good. Pulled back and did a biopsy of antrum which looked mildly inflammed. I then retroflexed the scope, saw a small 1cm hiatal hernia, took a picture of this and then pulled the scope into the GE junction. Took another picture of the hiatal hernia and then did a biopsy of the GE junction. Pushed the scope back into the stomach, suctioned all the air out of the stomach. At this point pulled the scope up the esophagus and out of her mouth. I took numerous pictures of the esophagus on the way up and did not see any inflammation. The patient tolerated the procedure, and she recovered in endoscopy suite. Anesthesia Type IV sedation by DRUG SAFETY COORDINATOR Estimated Blood Loss Estimated blood loss (mL): scant Specimens/Packing Specimens Removed antral bx GE jxn bx TONO FERREIRA DO Apr 20, 2022 12:34
[2022-04-20 12:35] VITALS: BP 108/64
--- NOTE | 2022-04-20 12:35 | Endoscopy Discharge Instruct ---
Endo Procedure/Findings Findings 1.: Gastritis 2.: Hiatal Hernia Discharge Instructions - Activity: You might feel a little sleepy until tomorrow. This is due to the medicine you received to relax you. Until tomorrow, you should: NOT drive a car, operate machinery or power tools. NOT drink any alcoholic beverages. NOT make any important decisions or sign importortant papers. Do not return to work until tomorrow, unless otherwise instructed. Resume previous activities tomorrow. Diet: Start by taking liquids. If you tolerate liquids, advance to solid food. 1.: EGD in 3 years Notify Physician - If you experience excessive bleeding, unusual abdominal pain, fever, or chest pain, contact your doctor immediately. TONO FERREIRA DO Apr 20, 2022 12:34
[2022-04-20 12:40] VITALS: BP 104/51
--- NOTE | 2022-04-20 13:08 | Anesthesia-General Post-Op ---
MAC Patient Condition Mental Status/LOC: Same as Preop Cardiovascular: Satisfactory Nausea/Vomiting: Absent Respiratory: Satisfactory Pain: Controlled Complications: Absent Post Op Complications Complications None Follow Up Care/Instructions Patient Instructions None needed. Anesthesiology Discharge Order Discharge Order Patient is doing well, no complaints, stable vital signs, no apparent adverse anesthesia problems. No complications reported per nursing. GIOVANNI TURNER CRNA Apr 20, 2022 13:08
[2022-04-20 13:10] VITALS: BP 110/66
[2022-04-20 13:35] VITALS: BP 110/66
[2022-04-20] MEDS ORDERED: ACHD5005 PO (14:03)
== END 2022-04-20 13:35 | disposition home or self-care (01) ==
LOC: ENDO 10:49
PROVIDERS: ATTEND Surgery
DX: K22.70 Barrett's esophagus without dysplasia (principal); K31.89 Other diseases of stomach and duodenum; K44.9 Diaphragmatic hernia without obstruction or gangrene; F17.210 Nicotine dependence, cigarettes, uncomplicated

== ENCOUNTER 2022-04-20 13:41 | Emergency (ER) | payer MEDICARE, MEDICAID ==
[~2022-04-20] VITALS: Ht 157.5 cm; Wt 40.8 kg
[2022-04-20 13:51] VITALS: BP 132/88
[2022-04-20] MEDS ORDERED: ACHD5005 PO (14:03)
--- NOTE | 2022-04-20 14:04 | ED Lower Extremity ---
General Chief Complaint: General Problems/Pain Stated Complaint: RIGHT ANKLE PAIN Nursing Triage Note: PT TO TRIAGE VIA WC W C/O RIGHT HIP/ANKLE PAIN. PT TO ED FROM DAY SURG WHERE SHE HAD AN EGD DONE THIS AM. PT REPORTS SHE RAN OUT OF THE PAIN MEDICINE, PCP JESSE DEWEY REFUSES TO PRESCRIBE PT PAIN MEDS, STATES SHE NEEDS TO GO BACK TO VASCULAR SURGEON (DR. MADRID) THAT DID PROCEDURE ON RLE, DR. MADRID ADVISES PT THAT PCP NEEDS TO PRESCRIBE PAIN MEDS. PT TEARFUL DURING TRIAGE, A&OX4. Source: patient Exam Limitations: no limitations History of Present Illness Date Seen by Provider: Apr 20, 2022 Time Seen by Provider: 14:01 Initial Comments To ER with reports that she needs pain medication. She just finished an endoscopy upstairs and figured while she was here she would get this taken care of. She has an ulcer/chronic wound to the anteromedial right ankle. This has failed skin grafting twice. She is following with Dr. Madrid from vascular surgery at [place]. She has a chronic open wound here and she is scheduled to see Dr. Madrid again in 2 weeks for surgical repair. She called her primary care to have pain medication refilled and they were not comfortable doing that. She called Dr. Madrid's office and he who was uncomfortable doing that. Onset: other Severity: moderate Pain/Injury Location: right ankle Method of Injury: unknown Modifying Factors: Worse With Movement Allergies and Home Medications Allergies Coded Allergies: Sulfa (Sulfonamide Antibiotics) (Verified Allergy, Unknown, 06/20/18) Patient Home Medication List Home Medication List Reviewed: Yes Aspirin (Aspirin) 325 Mg Tablet, 325 MG PO 1800, (Reported) Entered as Reported by: ERNST CASTILLO on 04/02/21 0815 Atorvastatin Calcium (Atorvastatin Calcium) 40 Mg Tablet, 40 MG PO 1800, (Reported) Entered as Reported by: WILLI TRIVEDI on 09/05/21 1437 Clopidogrel Bisulfate (Clopidogrel) 75 Mg Tablet, 75 MG PO 1200, (Reported) Entered as Reported by: WILLI TRIVEDI on 09/05/21 1437 Docusate Sodium (Stool Softener) 100 Mg Capsule, 100 MG PO BID, (Reported) Entered as Reported by: WILLI TRIVEDI on 09/05/21 1437 Ferrous Sulfate (Iron) 325 Mg (65 Mg Iron) Tablet, 325 MG PO, (Reported) Entered as Reported by: HUNTER BELTRAN on 04/08/22 1249 Hydrocodone/Acetaminophen (Hydrocodone-Acetamin 5-325 mg) 5 Mg-325 Mg Tablet, 1 TAB PO Q4H PRN for PAIN-MODERATE (5-7) Prescribed by: GONSALO RODRIGUEZ on 04/20/22 1403 Mecobalamin (B12 Active) 1,000 Mcg Tab.chew, 1,000 MCG PO, (Reported) Entered as Reported by: HUNTER BELTRAN on 04/08/22 1249 Pantoprazole Sodium (Pantoprazole Sodium) 40 Mg Tablet.dr, 40 MG PO BID Prescribed by: ASHLEE YEBOAH on 09/08/21 1310 Vitamin D (Vitamin D3) 10 Mcg (400 Unit) Tablet, 400 MCG PO, (Reported) Entered as Reported by: HUNTER BELTRAN on 04/08/22 1249 Review of Systems Constitutional: see HPI EENTM: see HPI Respiratory: no symptoms reported Cardiovascular: no symptoms reported Genitourinary: no symptoms reported Musculoskeletal: see HPI Skin: no symptoms reported Psychiatric/Neurological: No Symptoms Reported Past Knuclef-Mfkyws-Cszocl Hx Patient Social History Tobacco Use?: Yes Tobacco type used: Cigarettes Smoking Status: Current Everyday Smoker Use of E-Cig and/or Vaping dev: No Substance use?: No Alcohol Use?: Yes Alcohol Frequency: Couple times a week Immunizations Up To Date Tetanus Booster (TDap): Unknown PED Vaccines UTD: Yes Influenza Vaccine Up-to-Date: No; Not Current First/Initial COVID19 Vaccinat: 2020 Second COVID19 Vaccination Rolan: 2020 Third COVID19 Vaccination Date: 2021 COVID19 Vaccine Door Trimmer: MOHAN Seasonal Allergies Seasonal Allergies: No Past Medical History Surgeries: Yes Orthopedic, Vascular Surgery Respiratory: Yes COPD Cardiac: Yes High Cholesterol, Peripheral Vascular Neurological: No [employer] History: Menopausal Genitourinary: No Gastrointestinal: No (pt denies every having a colonoscopy and no EGD) Esophagitis Musculoskeletal: Yes Osteoporosis, Arthritis Endocrine: No HEENT: No Cancer: No Psychosocial: No Integumentary: No Blood Disorders: No Family Medical History Cancer Physical Exam Vital Signs Vital Signs - First Documented 04/20/22 13:51 Temp 36.9 Pulse 73 Resp 20 B/P (MAP) 132/88 (103) Pulse Ox 100 O2 Delivery Room Air Capillary Refill : Less Than 3 Seconds Height, Weight, BMI Height: 5'2.00" Weight: 105lbs. oz. 47.746447oh; 16.00 BMI Method:Stated General Appearance: WD/WN, no apparent distress HEENT: PERRL/EOMI, normal ENT inspection Respiratory: no respiratory distress, no accessory muscle use Hips: bilateral hip non-tender, bilateral hip normal inspection, bilateral hip normal range of motion Legs: bilateral leg non-tender, bilateral leg normal inspection, bilateral leg normal range of motion Knees: bilateral knee non-tender, bilateral knee normal inspection, bilateral knee normal range of motion Ankles: right ankle other (There is a roughly 2 x 8 cm ulcer of the skin and subcutaneous tissues over the anteromedial right ankle with exposure of the extensor pollicis longus tendon with movement noted when she dorsiflexes and plantar flexes the foot. No surrounding cellulitis though there is some minimal amount of purulent material so a culture of this was collected. She just finished an antibiotic a few days ago) Progress/Results/Core Measures Results/Orders My Orders Orders - GONSALO RODRIGUEZ APRN Wound Culture (04/20/22 14:14) Vital Signs/I&O 04/20/22 13:51 Temp 36.9 Pulse 73 Resp 20 B/P (MAP) 132/88 (103) Pulse Ox 100 O2 Delivery Room Air Blood Pressure Mean: 103 Departure Impression Primary Impression: Ankle pain Disposition: 01 HOME, SELF-CARE Condition: Stable Departure-Patient Inst. Decision time for Depature: 14:01 Referrals: ANGEL COSBY DO (PCP) Primary Care Physician JESSE COSBY DNP (Family) Primary Care Physician Patient Instructions: Acute Pain, Adult (DC) Scripts Hydrocodone/Acetaminophen (Hydrocodone-Acetamin 5-325 mg) 5 Mg-325 Mg Tablet 1 TAB PO Q4H PRN for PAIN-MODERATE (5-7), #20 TAB Prov: GONSALO RODRIGUEZ APRN 04/20/22 GONSALO RODRIGUEZ APRN Apr 20, 2022 14:04
== END 2022-04-20 14:35 | disposition home or self-care (01) ==
LOC: EDUNIT# 13:41 → ER 13:42
DX: M25.571 Pain in right ankle and joints of right foot (principal); F17.210 Nicotine dependence, cigarettes, uncomplicated
CPT/HCPCS: 87070; 87205; 99282

== ENCOUNTER → 2022-05-05 | Outpatient (CLI) | payer MEDICARE, MEDICAID ==
[2022-05-05 10:21] LABS: BASOPHILS % (AUTO) 1 % (0-10); EOSINOPHILS # (AUTO) 0.2 10^3/uL (0.0-0.3); EOSINOPHILS % (AUTO) 3 % (0-10); HEMATOCRIT 34 % (35-52); HEMOGLOBIN 11.2 g/dL (11.5-16.0); LYMPHOCYTES # (AUTO) 0.7 10^3/uL (1.0-4.0); LYMPHOCYTES % (AUTO) 13 % (12-44); MEAN CORPUSCULAR HEMOGLOBIN 30 pg (25-34); MEAN CORPUSCULAR HGB CONC 33 g/dL (32-36); MEAN CORPUSCULAR VOLUME 91 fL (80-99); MEAN PLATELET VOLUME 10.3 fL (9.0-12.2); MONOCYTES # (AUTO) 0.5 10^3/uL (0.0-1.0); MONOCYTES % (AUTO) 9 % (0-12); NEUTROPHILS % (AUTO) 74 % (42-75); PLATELET COUNT 307 10^3/uL (130-400); WHITE BLOOD COUNT 5.4 10^3/uL (4.3-11.0)
[2022-05-05 10:22] LABS: BILIRUBIN,URINE NEGATIVE (NEGATIVE); CLARITY,URINE CLEAR; COLOR,URINE YELLOW; GLUCOSE, URINE (UA) NEGATIVE (NEGATIVE); KETONES,URINE NEGATIVE (NEGATIVE); LEUKOCYTE ESTERASE ,URINE NEGATIVE (NEGATIVE); NITRITE,URINE NEGATIVE (NEGATIVE); PH,URINE 5.5 (5-9); PROTEIN,URINE NEGATIVE (NEGATIVE)
[2022-05-05 10:44] LABS: BACTERIA,URINE NEGATIVE /HPF; SQUAMOUS EPITHELIAL CELL,UR 0-2 /HPF
[2022-05-05 10:55] LABS: ALBUMIN 3.9 GM/DL (3.2-4.5); BILIRUBIN,TOTAL 0.3 MG/DL (0.1-1.0); CALCIUM 9.6 MG/DL (8.5-10.1); CREATININE SERUM 0.7 MG/DL (0.60-1.30); TOTAL PROTEIN 7.6 GM/DL (6.4-8.2)
--- NOTE | 2022-05-05 13:22 | Diagnostic Imaging Report ---
Indication: Preop for cardiac surgery PA and lateral chest obtained at 10:27 a.m. and compared to 04/02/2021. Heart and mediastinal silhouette are normal in appearance. Lungs appear clear. There is no pneumothorax or pleural fluid. There are surgical clips over the upper chest on both sides. Impression: No acute process in the chest. Dictated by: Dictated on workstation # [id number]
== END ==
LOC: CARD 09:45
PROVIDERS: ATTEND Nurse Practitioner
DX: Z01.810 Encounter for preprocedural cardiovascular examination (principal); I70.213 Atherosclerosis of native arteries of extremities with intermittent claudication, bilateral legs
CPT/HCPCS: 36415; 71046; 80053; 81000; 85025; 93005

== ENCOUNTER → 2022-06-01 | Outpatient (CLI) | payer MEDICARE, MEDICAID | LOC: WOUNDCARE 13:10 | PROVIDERS: ATTEND Family Medicine | DX: I70.233 Atherosclerosis of native arteries of right leg with ulceration of ankle (principal); L97.315 Non-pressure chronic ulcer of right ankle with muscle involvement without evidence of necrosis; E44.0 Moderate protein-calorie malnutrition; T65.292A Toxic effect of other tobacco and nicotine, intentional self-harm, initial encounter; D46.4 Refractory anemia, unspecified; T86.821 Skin graft (allograft) (autograft) failure; I89.0 Lymphedema, not elsewhere classified; Z68.1 Body mass index [BMI] 19.9 or less, adult | CPT/HCPCS: 11042; G0463 ==

== ENCOUNTER → 2022-06-08 | Outpatient (CLI) | payer MEDICARE, MEDICAID | LOC: WOUNDCARE 13:28 | PROVIDERS: ATTEND Family Medicine | DX: I96 Gangrene, not elsewhere classified (principal); L97.315 Non-pressure chronic ulcer of right ankle with muscle involvement without evidence of necrosis; I70.233 Atherosclerosis of native arteries of right leg with ulceration of ankle; E44.0 Moderate protein-calorie malnutrition; T65.292A Toxic effect of other tobacco and nicotine, intentional self-harm, initial encounter; D46.4 Refractory anemia, unspecified; T86.821 Skin graft (allograft) (autograft) failure; I89.0 Lymphedema, not elsewhere classified; G90.09 Other idiopathic peripheral autonomic neuropathy; Z68.1 Body mass index [BMI] 19.9 or less, adult | CPT/HCPCS: 11042; G0463 ==

== ENCOUNTER → 2022-06-15 | Outpatient (CLI) | payer MEDICARE, MEDICAID ==
[2022-06-15 14:40] LABS: POTASSIUM 3.8 MMOL/L (3.6-5.0)
[2022-06-15 14:41] LABS: CALCIUM 9.1 MG/DL (8.5-10.1)
[2022-06-15 14:46] LABS: CREATININE SERUM 0.68 MG/DL (0.60-1.30)
== END ==
LOC: WOUNDCARE 13:30
PROVIDERS: ATTEND Family Medicine
DX: I96 Gangrene, not elsewhere classified (principal); L97.315 Non-pressure chronic ulcer of right ankle with muscle involvement without evidence of necrosis; I70.233 Atherosclerosis of native arteries of right leg with ulceration of ankle; E44.0 Moderate protein-calorie malnutrition; T65.292A Toxic effect of other tobacco and nicotine, intentional self-harm, initial encounter; D46.4 Refractory anemia, unspecified; T86.821 Skin graft (allograft) (autograft) failure; I89.0 Lymphedema, not elsewhere classified; G90.09 Other idiopathic peripheral autonomic neuropathy; Z68.1 Body mass index [BMI] 19.9 or less, adult
CPT/HCPCS: 80048; G0463; 36415; 99212

== ENCOUNTER → 2022-06-22 | Outpatient (CLI) | payer MEDICARE, MEDICAID | LOC: WOUNDCARE 13:31 | PROVIDERS: ATTEND Family Medicine | DX: L97.325 Non-pressure chronic ulcer of left ankle with muscle involvement without evidence of necrosis (principal); I70.233 Atherosclerosis of native arteries of right leg with ulceration of ankle; E44.0 Moderate protein-calorie malnutrition; T65.292A Toxic effect of other tobacco and nicotine, intentional self-harm, initial encounter; D46.4 Refractory anemia, unspecified; T86.821 Skin graft (allograft) (autograft) failure; I89.0 Lymphedema, not elsewhere classified; G90.09 Other idiopathic peripheral autonomic neuropathy; I96 Gangrene, not elsewhere classified | CPT/HCPCS: 99212 ==

== ENCOUNTER → 2022-07-03 | Outpatient (CLI) | payer OTHER, MEDICAID ==
[~2022-07-03] MED LIST changes: +GADOTERATE 0.5 MMOL/ML (CLARISCAN) 20 ML VIAL IV ONE
--- NOTE | 2022-07-03 15:27 | Diagnostic Imaging Report ---
INDICATION: Ulcer of anterior aspect of the ankle. Area marked with a marker. Prior ankle surgery. EXAMINATION: Right lower extremity MRI with and without contrast 07/03/2022. FINDINGS: There is marked susceptibility artifact secondary to prior postoperative changes at the ankle. This limits evaluation of some of the surrounding structures. Diffuse subcutaneous edema seen throughout the visualized ankle and foot. No acute osseous abnormality is appreciated. The Achilles tendon is intact. The plantar fascia appears unremarkable. There appears to be a short segment longitudinal split tear of the peroneus brevis tendon. The peroneus longus tendon is intact. The extensor and flexor tendons appear to be intact. The flexor hallucis longus tendon appears prominent perhaps due to tendinosis. No surrounding fluid is appreciated. There is poor visualization of the anterior and posterior inferior tibiofibular ligaments as well as the anterior talofibular ligament due to artifact. The posterior talofibular ligament appears to be intact. Deltoid ligament also obscured by artifact. There is a marker anterior aspect of the distal tibia tibial region. Immediately underlying the marker no acute abnormality is appreciated. No fluid collection to suggest abscess formation. There is no abnormal enhancement on postcontrast imaging with no evidence for osteomyelitis. IMPRESSION: 1. Diffuse changes of edema throughout the subcutaneous tiny soft tissues of the foot and ankle with no discrete abscess appreciated. 2. Findings of chronic appearing tendinosis of the flexor hallucis longus tendon. 3. Short segment longitudinal split tear of the peroneus brevis tendon with remaining tendons intact. 4. Ligaments poorly evaluated due to artifact, as detailed above. 5. No evidence for abscess or osteomyelitis. Dictated by: Dictated on workstation # [id number]
== END ==
LOC: RAD 13:40
PROVIDERS: ATTEND Family Medicine
DX: S96.011A Strain of muscle and tendon of long flexor muscle of toe at ankle and foot level, right foot, initial encounter (principal); S86.311A Strain of muscle(s) and tendon(s) of peroneal muscle group at lower leg level, right leg, initial encounter; L97.315 Non-pressure chronic ulcer of right ankle with muscle involvement without evidence of necrosis; E44.0 Moderate protein-calorie malnutrition; D46.4 Refractory anemia, unspecified; I89.0 Lymphedema, not elsewhere classified; I70.233 Atherosclerosis of native arteries of right leg with ulceration of ankle; T65.292A Toxic effect of other tobacco and nicotine, intentional self-harm, initial encounter; T86.821 Skin graft (allograft) (autograft) failure; G90.09 Other idiopathic peripheral autonomic neuropathy; X58.XXXA Exposure to other specified factors, initial encounter
CPT/HCPCS: 73723

== ENCOUNTER → 2022-07-07 | Outpatient (CLI) | payer OTHER, MEDICAID ==
[~2022-07-07] MED LIST changes: -GADOTERATE 0.5 MMOL/ML (CLARISCAN) 20 ML VIAL IV ONE
== END ==
LOC: WOUNDCARE 12:28
PROVIDERS: ATTEND Family Medicine
DX: I70.233 Atherosclerosis of native arteries of right leg with ulceration of ankle (principal); L97.315 Non-pressure chronic ulcer of right ankle with muscle involvement without evidence of necrosis; E44.0 Moderate protein-calorie malnutrition; T65.292A Toxic effect of other tobacco and nicotine, intentional self-harm, initial encounter; D46.4 Refractory anemia, unspecified; T86.821 Skin graft (allograft) (autograft) failure; I89.0 Lymphedema, not elsewhere classified; G90.09 Other idiopathic peripheral autonomic neuropathy; I96 Gangrene, not elsewhere classified
CPT/HCPCS: 11042; G0463

== ENCOUNTER → 2022-07-23 | Outpatient (CLI) | payer OTHER, MEDICAID | LOC: WOUNDCARE 12:27 | PROVIDERS: ATTEND Family Medicine | DX: I70.233 Atherosclerosis of native arteries of right leg with ulceration of ankle (principal); L97.315 Non-pressure chronic ulcer of right ankle with muscle involvement without evidence of necrosis; E44.0 Moderate protein-calorie malnutrition; T65.292A Toxic effect of other tobacco and nicotine, intentional self-harm, initial encounter; D46.4 Refractory anemia, unspecified; T86.821 Skin graft (allograft) (autograft) failure; I89.0 Lymphedema, not elsewhere classified; G90.09 Other idiopathic peripheral autonomic neuropathy; I96 Gangrene, not elsewhere classified | CPT/HCPCS: A6260; G0463; L4360; 99212 ==

== ENCOUNTER → 2022-08-07 | Outpatient (CLI) | payer OTHER, MEDICAID | LOC: LAB 11:38 | PROVIDERS: ATTEND Thoracic Surgery (Cardiothoracic Vascular Surgery) | DX: Z01.810 Encounter for preprocedural cardiovascular examination (principal); I70.213 Atherosclerosis of native arteries of extremities with intermittent claudication, bilateral legs ==

== ENCOUNTER → 2022-08-07 | Outpatient (CLI) | payer OTHER, MEDICAID ==
[2022-08-07 12:12] LABS: BASOPHILS % (AUTO) 1 % (0-10); EOSINOPHILS # (AUTO) 0.1 10^3/uL (0.0-0.3); EOSINOPHILS % (AUTO) 2 % (0-10); HEMATOCRIT 31 % (35-52); HEMOGLOBIN 9.9 g/dL (11.5-16.0); LYMPHOCYTES # (AUTO) 0.4 10^3/uL (1.0-4.0); LYMPHOCYTES % (AUTO) 8 % (12-44); MEAN CORPUSCULAR HEMOGLOBIN 32 pg (25-34); MEAN CORPUSCULAR HGB CONC 32 g/dL (32-36); MEAN CORPUSCULAR VOLUME 100 fL (80-99); MONOCYTES # (AUTO) 0.4 10^3/uL (0.0-1.0); MONOCYTES % (AUTO) 9 % (0-12); NEUTROPHILS # (AUTO) 3.8 10^3/uL (1.8-7.8); NEUTROPHILS % (AUTO) 80 % (42-75); PLATELET COUNT 263 10^3/uL (130-400); WHITE BLOOD COUNT 4.8 10^3/uL (4.3-11.0)
[2022-08-07 12:21] LABS: BILIRUBIN,URINE NEGATIVE (NEGATIVE); CLARITY,URINE CLEAR; COLOR,URINE YELLOW; GLUCOSE, URINE (UA) NEGATIVE (NEGATIVE); KETONES,URINE NEGATIVE (NEGATIVE); LEUKOCYTE ESTERASE ,URINE NEGATIVE (NEGATIVE); NITRITE,URINE NEGATIVE (NEGATIVE); PROTEIN,URINE NEGATIVE (NEGATIVE)
[2022-08-07 12:30] LABS: ALBUMIN 3.9 GM/DL (3.2-4.5); BILIRUBIN,TOTAL 0.6 MG/DL (0.1-1.0); CALCIUM 9.1 MG/DL (8.5-10.1); CREATININE SERUM 0.69 MG/DL (0.60-1.30); POTASSIUM 3.9 MMOL/L (3.6-5.0); TOTAL PROTEIN 7.2 GM/DL (6.4-8.2)
[2022-08-07 12:35] LABS: BACTERIA,URINE NEGATIVE /HPF; SQUAMOUS EPITHELIAL CELL,UR RARE /HPF
[2022-08-07 13:25] LABS: BAND NEUTROPHILS 1 %; EOSINOPHILS % (MANUAL) 1 %; LYMPHOCYTES % (MANUAL) 6 %; MONOCYTES % (MANUAL) 6 %; NEUTROPHILS % (MANUAL) 86 %
[2022-08-07 13:26] LABS: ANISOCYTOSIS SLIGHT
== END ==
LOC: LAB 11:43
PROVIDERS: ATTEND Nurse Practitioner Family
DX: E83.51 Hypocalcemia (principal); K90.9 Intestinal malabsorption, unspecified
CPT/HCPCS: 36415; 80053; 81000; 82607; 82746; 83970; 85007; 85027

== ENCOUNTER → 2022-08-10 | Outpatient (CLI) | payer OTHER, MEDICAID ==
--- NOTE | 2022-08-10 12:37 | Diagnostic Imaging Report ---
EXAMINATION: Chest, 2 views. HISTORY: Preoperative evaluation. COMPARISON: None available. FINDINGS: Heart size and pulmonary vasculature are normal. The lungs are clear without consolidation, pleural effusion, or pneumothorax. The osseous structures are intact. Multiple surgical clips overlie the upper chest, unchanged. Surgical changes of the left humerus. IMPRESSION: No acute radiographic abnormality in the chest. Dictated by: Dictated on workstation # [id number]
== END ==
LOC: CARD 11:29
PROVIDERS: ATTEND Thoracic Surgery (Cardiothoracic Vascular Surgery)
DX: Z01.810 Encounter for preprocedural cardiovascular examination (principal); I70.213 Atherosclerosis of native arteries of extremities with intermittent claudication, bilateral legs
CPT/HCPCS: 71046; 93005

== ENCOUNTER → 2022-08-17 | Outpatient (CLI) | payer OTHER, MEDICAID | LOC: WOUNDCARE 14:26 | PROVIDERS: ATTEND Family Medicine | DX: I96 Gangrene, not elsewhere classified (principal); I70.233 Atherosclerosis of native arteries of right leg with ulceration of ankle; L97.313 Non-pressure chronic ulcer of right ankle with necrosis of muscle; T86.821 Skin graft (allograft) (autograft) failure; T65.292A Toxic effect of other tobacco and nicotine, intentional self-harm, initial encounter; E44.0 Moderate protein-calorie malnutrition; D46.4 Refractory anemia, unspecified; I89.0 Lymphedema, not elsewhere classified; G90.09 Other idiopathic peripheral autonomic neuropathy; Z68.1 Body mass index [BMI] 19.9 or less, adult | CPT/HCPCS: 99212 ==